=== PATIENT | female | born 1960 | race Caucasian/White ===

== ENCOUNTER 2018-09-23 07:56 | Emergency (ER) | payer BC ==
--- NOTE | 2018-09-23 08:06 | ERPHSYRPT ---
- History of Present Illness Time Seen by Provider: 09/23/18 08:01 Historian: patient, EMS Exam Limitations: no limitations Physician History: 58 y/o white female with h/o htn and states she has chronic "arthritis" pain in her chest presents with approx 30 minutes of different type of chest pain. it was sharp. it spontaneously resolved. she arrives via ems with no cp, no soa and no abd pain. pt denies n/v but does have diarrhea. she states onset yesterday but thinks she ate something she should not have since she has multiple food allergies. pt received four baby asa by EMS. pt did not take her bp meds this am. Timing/Duration: today Activities at Onset: none Quality: sharpness Location: substernal Chest Pain Radiation: no radiation Severity of Pain-Max: mild Severity of Pain-Current: none Modifying Factors: Improves With: nothing Associated Symptoms: No nausea, No vomiting, No palpitations, No heartburn, No abdominal pain, No shortness of breath, No cough, No hurts to breathe, No diaphoresis, No chills, No fever, No fatigue, No weakness, No swelling/lump in chest, No syncope, No rash, No headache, No dizziness, No edema, No back pain Prior Chest Pain/Cardiac Workup: no prior chest pain Nitro Today/Relief: no nitro taken today Aspirin Treatment Today: 81 mg x 4, provided by EMS Allergies/Adverse Reactions: Penicillins Allergy (Verified 09/23/18 08:06) Home Medications: Carvedilol 12.5 mg [Coreg 12.5 mg] 12.5 mg DAILY 09/23/18 [History] Lisinopril 10 mg [Zestril 10 MG] 10 mg DAILY 09/23/18 [History] Pravastatin Sodium [Pravachol] 10 mg DAILY 09/23/18 [History] - Review of Systems Constitutional: No Symptoms, No Fever Eyes: No Symptoms, No Discharge, No Eye Pain Ears, Nose, & Throat: No Symptoms, No Ear Pain, No Ear Discharge Respiratory: No Symptoms, No Cough, No Dyspnea, No Stridor, No Wheezing Cardiac: No Symptoms, No Chest Pain, No Edema, No Palpitations, No Syncope Abdominal/Gastrointestinal: Diarrhea, No Abdominal Pain, No Nausea, No Vomiting Genitourinary Symptoms: No Symptoms, No Dysuria, No Frequency, No Hematuria Musculoskeletal: No Symptoms Skin: No Symptoms Neurological: No Symptoms Psychological: No Symptoms Endocrine: No Symptoms Hematologic/Lymphatic: No Symptoms Immunological/Allergic: No Symptoms All Other Systems: Reviewed and Negative - Past Medical History Pertinent Past Medical History: Yes Neurological History: No Pertinent History ENT History: No Pertinent History Cardiac History: Arrhythmia, Hypertension, Other Respiratory History: No Pertinent History Endocrine Medical History: No Pertinent History Musculoskeletal History: Arthritis GI Medical History: No Pertinent History History: No Pertinent History Psycho-Social History: No Pertinent History Female Reproductive Disorders: No Pertinent History 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, irregular heart rate - Past Surgical History Past Surgical History: No Neuro Surgical History: No Pertinent History Cardiac: No Pertinent History Respiratory: No Pertinent History Gastrointestinal: No Pertinent History Genitourinary: No Pertinent History Musculoskeletal: No Pertinent History Female Surgical History: No Pertinent History Other Surgical History: hx of fx 3 vertebrae in the neck,fx lt side of jaw and skull fx from [facility] 1981 - Social History Smoking Status: Never smoker Exposure to second hand smoke: No Drug Use: none - Nursing Vital Signs Nursing Vital Signs: Initial Vital Signs O2 Sat by Pulse Oximetry 97 09/23/18 08:18 Pain Scale Pain Intensity 0 - Physical Exam General Appearance: no apparent distress, alert, anxiety Eye Exam: PERRL/EOMI, eyes nml inspection Ears, Nose, Throat Exam: normal ENT inspection, TMs normal, pharynx normal, moist mucous membranes Neck Exam: normal inspection, non-tender, supple, full range of motion Respiratory Exam: normal breath sounds, lungs clear, airway intact, No chest tenderness, No respiratory distress, No accessory muscle use, No rhonchi, No wheezing, No stridor Cardiovascular Exam: regular rate/rhythm, normal heart sounds, normal peripheral pulses Gastrointestinal/Abdomen Exam: soft, normal bowel sounds, No tenderness, No guarding, No rebound Pelvic Exam: not done Rectal Exam: not done Back Exam: normal inspection, normal range of motion, No CVA tenderness, No vertebral tenderness Extremity Exam: normal inspection, No normal range of motion, No pelvis stable Neurologic Exam: alert, oriented x 3, cooperative, mechanism inspector II-XII nml as tested Skin Exam: normal color, warm, dry Lymphatic Exam: No adenopathy SpO2 Interpretation: normal Oxygen Delivery: Room Air - Course Nursing assessment & vital signs reviewed: Yes EKG Interpreted by Me: RATE (61), Sinus Rhythm, NORMAL AXIS, NORMAL INTERVALS, NORMAL QRS, Non-specific ST Changes, Other (no comparison ekg) Ordered Tests: Active Orders 24 hr Category Date Time Status Marketing Services Specialist STAT Care 09/23/18 08:07 Active EKG-ER Only STAT Care 09/23/18 08:07 Active IV Insertion STAT Care 09/23/18 08:07 Active Pulse Oximetry (ED) STAT Care 09/23/18 08:07 Active CBC W DIFF Stat Lab 09/23/18 09:00 Completed CMP Stat Lab 09/23/18 09:00 Completed NT PRO BNP Stat Lab 09/23/18 09:00 Completed PROTIME WITH INR Stat Lab 09/23/18 09:00 Completed TROPONIN Q3H Lab 09/23/18 09:00 Completed TROPONIN Q3H Lab 09/23/18 11:15 Ordered TROPONIN Q3H Lab 09/23/18 14:15 Ordered TROPONIN Q3H Lab 09/23/18 17:15 Ordered TROPONIN Q3H Lab 09/23/18 20:15 Ordered Medication Summary Generic Name Dose Route Start Last Admin Trade Name Freq PRN Reason Stop Dose Admin Sodium Chloride 1,000 mls @ 100 mls/hr 09/23/18 08:15 09/23/18 08:30 Sodium Chloride 0.9% 1000 Ml IV 10/23/18 08:14 100 mls/hr .Q10H CHULA Administration Discontinued Medications Generic Name Dose Route Start Last Admin Trade Name Freq PRN Reason Stop Dose Admin Nitroglycerin 0.4 mg 09/23/18 08:07 09/23/18 08:30 Nitrostat 0.4 Mg (Ed) SL 09/23/18 08:08 0.4 mg STAT ONE Administration Nitroglycerin Confirm 09/23/18 08:28 Nitrostat 0.4 Mg (Ed) Administered 09/23/18 08:29 Dose 0.4 mg SL .STK-MED ONE Lab/Rad Data: Laboratory Result Diagrams 09/23/18 09:00 09/23/18 09:00 Laboratory Results 09/23/18 09/23/18 09/23/18 Range/Units 09:00 09:00 09:00 WBC (4.0-10.5) K/mm3 RBC (4.1-5.4) M/mm3 Hgb (12.0-16.0) gm/dl Hct (35-47) % MCV (78-100) fl MCH (26-32) pg MCHC (32-36) g/dl RDW (11.5-14.0) % Plt Count (150-450) K/mm3 MPV (6-9.5) fl Gran % (36.0-66.0) % Eos # (Auto) (0-0.5) Absolute Lymphs (auto) (1.0-4.6) Absolute Monos (auto) (0.0-1.3) Lymphocytes % (24.0-44.0) % Monocytes % (0.0-12.0) % Eosinophils % (0.00-5.0) % Basophils % (0.0-0.4) % Absolute Granulocytes (1.4-6.9) Basophils # (0-0.4) PT 12.7 H (9.95-12.35) SECONDS INR 1.09 (0.8-3.0) Sodium 139 (137-145) mmol/L Potassium 4.3 (3.5-5.1) mmol/L Chloride 103 (98-107) mmol/L Carbon Dioxide 27 (22-30) mmol/L Anion Gap 14.0 (5-15) MEQ/L BUN 17 (7-17) mg/dL Creatinine 0.58 (0.52-1.04) mg/dL Estimated GFR > 60.0 ML/MIN Glucose 98 (74-106) mg/dL Calcium 9.7 (8.4-10.2) mg/dL Total Bilirubin 0.60 (0.2-1.3) mg/dL AST 22 (14-36) U/L ALT 20 (0-35) U/L Alkaline Phosphatase 72 (38-126) U/L Troponin I < 0.012 (0.000-0.034) ng/mL NT-Pro-B Natriuret Pep 56.0 (0-900) pg/mL Serum Total Protein 7.4 (6.3-8.2) g/dL Albumin 4.4 (3.5-5.0) g/dL 09/23/18 Range/Units 09:00 WBC 5.7 (4.0-10.5) K/mm3 RBC 4.47 (4.1-5.4) M/mm3 Hgb 12.7 (12.0-16.0) gm/dl Hct 39.5 (35-47) % MCV 88.4 (78-100) fl MCH 28.4 (26-32) pg MCHC 32.2 (32-36) g/dl RDW 13.6 (11.5-14.0) % Plt Count 272 (150-450) K/mm3 MPV 9.9 H (6-9.5) fl Gran % 69.8 H (36.0-66.0) % Eos # (Auto) 0.11 (0-0.5) Absolute Lymphs (auto) 1.22 (1.0-4.6) Absolute Monos (auto) 0.37 (0.0-1.3) Lymphocytes % 21.4 L (24.0-44.0) % Monocytes % 6.5 (0.0-12.0) % Eosinophils % 1.9 (0.00-5.0) % Basophils % 0.4 (0.0-0.4) % Absolute Granulocytes 3.99 (1.4-6.9) Basophils # 0.02 (0-0.4) PT (9.95-12.35) SECONDS INR (0.8-3.0) Sodium (137-145) mmol/L Potassium (3.5-5.1) mmol/L Chloride (98-107) mmol/L Carbon Dioxide (22-30) mmol/L Anion Gap (5-15) MEQ/L BUN (7-17) mg/dL Creatinine (0.52-1.04) mg/dL Estimated GFR ML/MIN Glucose (74-106) mg/dL Calcium (8.4-10.2) mg/dL Total Bilirubin (0.2-1.3) mg/dL AST (14-36) U/L ALT (0-35) U/L Alkaline Phosphatase (38-126) U/L Troponin I (0.000-0.034) ng/mL NT-Pro-B Natriuret Pep (0-900) pg/mL Serum Total Protein (6.3-8.2) g/dL Albumin (3.5-5.0) g/dL - Progress Progress: improved, re-examined Air Movement: good Progress Note: 09/23/18 10:40 pt has no cp and no soa Blood Culture(s) Obtained: No Antibiotics given: No Counseled pt/family regarding: lab results, diagnosis, need for follow-up - Departure Time of Disposition: 10:40 Departure Disposition: Home Clinical Impression: Chest pain Condition: Stable Critical Care Time: No Referrals: ENMA MADRID [Primary Care Provider] - Additional Instructions: take your medications as prescribed. follow up with primary doctor for further management
[2018-09-23] MEDS ORDERED: Nitrostat 0.4 MG (ED) SL ONE ×2 (08:07→08:28)
[2018-09-23] MEDS ORDERED: Sodium Chloride 0.9% 1000 ML 1,000 ML IV SCH (08:15)
[2018-09-23] MEDS ORDERED: Sodium Chloride 0.9% 1000 ML 1,000 ML ONE (08:28)
[2018-09-23 09:21] LABS: BASOPHIL % 0.4 % (0.0-0.4); Basophil (Absolute #) 0.02 (0-0.4); Eosinophil % 1.9 % (0.00-5.0); Eosinophil (Absolute #) 0.11 (0-0.5); Granulocyte Absolute (ANC) 3.99 (1.4-6.9); Granulocytes % 69.8 % (36.0-66.0); Hematocrit 39.5 % (35-47); Hemoglobin 12.7 gm/dl (12.0-16.0); Lymphocyte (Absolute #) 1.22 (1.0-4.6); Lymphocytes % 21.4 % (24.0-44.0); Mean Cell Volume 88.4 fl (78-100); Mean Corpuscular Hemoglobin 28.4 pg (26-32); Mean Corpuscular Hgb Concent. 32.2 g/dl (32-36); Mean Platelet Volume 9.9 fl (6-9.5); Monocyte (Absolute #) 0.37 (0.0-1.3); Monocytes % 6.5 % (0.0-12.0); Platelet Count 272 K/mm3 (150-450); Red Blood Count 4.47 M/mm3 (4.1-5.4); Red Cell Distribution Width 13.6 % (11.5-14.0); White Blood Count 5.7 K/mm3 (4.0-10.5)
[2018-09-23 09:36] LABS: ALBUMIN 4.4 g/dL (3.5-5.0); ALKALINE PHOSPHATASE 72 U/L (38-126); BLOOD UREA NITROGEN 17 mg/dL (7-17); CHLORIDE 103 mmol/L (98-107); Calcium 9.7 mg/dL (8.4-10.2); Carbon Dioxide 27 mmol/L (22-30); Creatinine 1 0.58 mg/dL (0.52-1.04); Glucose 98 mg/dL (74-106); Potassium 4.3 mmol/L (3.5-5.1); SGOT/AST 22 U/L (14-36); SGPT/ALT 20 U/L (0-35); SODIUM 139 mmol/L (137-145); Total Protein 7.4 g/dL (6.3-8.2)
[2018-09-23 09:38] LABS: INR 1.09 (0.8-3.0)
[2018-09-23 11:53] VITALS: BP 152/84; PULSE 70; O2SAT 97
== END 2018-09-23 11:29 | disposition home or self-care (01) ==
LOC: ED 07:56
DX: R07.9 Chest pain, unspecified (principal); Z79.899 Other long term (current) drug therapy
CPT/HCPCS: 36000; 36415; 80053; 83880; 84484; 85025; 85610; 93005; 93041; 96360; 96361; 99284; A9270-GY

== ENCOUNTER 2019-06-11 12:30 | Emergency (ER) | payer BC ==
[2019-06-11] MEDS ORDERED: Sodium Chloride 0.9% 1000 ML 1,000 ML ONE (13:30)
--- NOTE | 2019-06-11 13:32 | ERPHSYRPT ---
- History of Present Illness Time Seen by Provider: 06/11/19 13:18 Source: patient Exam Limitations: no limitations Patient Subjective Stated Complaint: pt here for lower abd pain for a year on and off, pain started today with some nausea, was able to eat, pain is worse when stands, no fever, pt has had testing done Triage Nursing Assessment: pt walked in, alert, resp easy, skin w/d/p. abd soft , nontender, no edema, moves all ext well Physician History: At as a teaher this AM - lower Left Quadrant abdominal pain - sudden onset - still present. Has had similar episodes for the past two years. Has seen urgent care and blood work done. Sees urban planning professor for irregular heart beat. No other major medical problems and no other medical issues today. Timing/Duration: today, hour(s) (4) Severity: moderate Modifying Factors: Improves With: nothing Associated Symptoms: denies symptoms Allergies/Adverse Reactions: Penicillins Allergy (Verified 06/11/19 12:49) Home Medications: Carvedilol 12.5 mg [Coreg 12.5 mg] 12.5 mg DAILY 09/23/18 [History] Lisinopril 10 mg [Zestril 10 MG] 10 mg DAILY 09/23/18 [History] Pravastatin Sodium [Pravachol] 10 mg DAILY 09/23/18 [History] Hx Influenza Vaccination/Date Given: No Hx Pneumococcal Vaccination/Date Given: No Immunizations Up to Date: Yes - Review of Systems Constitutional: No Symptoms Respiratory: No Symptoms Cardiac: Chest Pain (Had her usual sharp tinge below breastbone I(epigastric) area also today - lasts seconds only - off and on 2 years) All Other Systems: Reviewed and Negative - Past Medical History Pertinent Past Medical History: Yes Neurological History: No Pertinent History ENT History: No Pertinent History Cardiac History: Arrhythmia, Hypertension, Other Respiratory History: No Pertinent History Endocrine Medical History: No Pertinent History Musculoskeletal History: Arthritis GI Medical History: No Pertinent History History: No Pertinent History Psycho-Social History: No Pertinent History Female Reproductive Disorders: No Pertinent History 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, irregular heart rate - Past Surgical History Past Surgical History: No Neuro Surgical History: No Pertinent History Cardiac: No Pertinent History Respiratory: No Pertinent History Gastrointestinal: No Pertinent History Genitourinary: No Pertinent History Musculoskeletal: No Pertinent History Female Surgical History: No Pertinent History Other Surgical History: hx of fx 3 vertebrae in the neck,fx lt side of jaw and skull fx from [facility] 1981 - Social History Smoking Status: Never smoker Exposure to second hand smoke: No Drug Use: none Patient Lives Alone: No - Female History Hx Last Menstrual Period: no Hx Now: No - Nursing Vital Signs Nursing Vital Signs: Initial Vital Signs Pulse Rate 83 06/11/19 12:39 Respiratory Rate 18 06/11/19 12:39 Blood Pressure 175/94 06/11/19 12:39 O2 Sat by Pulse Oximetry 98 06/11/19 12:39 Pain Scale Pain Intensity 0 - Physical Exam General Appearance: no apparent distress Eye Exam: PERRL/EOMI Ears, Nose, Throat Exam: normal ENT inspection Neck Exam: normal inspection Respiratory Exam: normal breath sounds, lungs clear, airway intact, No chest tenderness Cardiovascular Exam: regular rate/rhythm, normal heart sounds, normal peripheral pulses, No edema Gastrointestinal/Abdomen Exam: soft, normal bowel sounds, other (soft to palation), No tenderness, No distention, No guarding Extremity Exam: normal inspection, normal range of motion, No pedal edema, No swelling Neurologic Exam: alert, oriented x 3, cooperative, floor finisher II-XII nml as tested, normal mood/affect SpO2 Interpretation: normal SpO2: 98 O2 Delivery: Room Air - Course Nursing assessment & vital signs reviewed: Yes - CT Exams Abdomen/Pelvis CT Interpretation: Other (Small L inguinal hernia) Ordered Tests: Active Orders 24 hr Category Date Time Status IV Insertion STAT Care 06/11/19 12:55 Active ABDOMEN AND PELVIS W CONTRAST [CT] Stat Exams 06/11/19 13:41 Completed CBC W DIFF Stat Lab 06/11/19 12:45 Completed CMP Stat Lab 06/11/19 12:45 Completed LIPASE Stat Lab 06/11/19 12:45 Completed UA W/RFX UR CULTURE Stat Lab 06/11/19 13:34 Completed Medication Summary Discontinued Medications Generic Name Dose Route Start Last Admin Trade Name Freq PRN Reason Stop Dose Admin Sodium Chloride 1,000 mls @ 999 mls/hr 06/11/19 13:26 06/11/19 14:34 Sodium Chloride 0.9% 1000 Ml IV 06/11/19 14:26 Infused .Q1H1M STA Infusion Sodium Chloride Confirm 06/11/19 13:30 Sodium Chloride 0.9% 1000 Ml Administered 06/11/19 13:31 Dose 1,000 mls @ .ROUTE [facility] Lab/Rad Data: Laboratory Result Diagrams 06/11/19 12:45 06/11/19 12:45 Laboratory Results 06/11/19 06/11/19 06/11/19 Range/Units 13:34 12:45 12:45 WBC 6.1 (4.0-10.5) K/mm3 RBC 4.51 (4.1-5.4) M/mm3 Hgb 13.2 (12.0-16.0) gm/dl Hct 40.6 (35-47) % MCV 90.0 (78-100) fl MCH 29.3 (26-32) pg MCHC 32.5 (32-36) g/dl RDW 13.7 (11.5-14.0) % Plt Count 317 (150-450) K/mm3 MPV 9.9 H (6-9.5) fl Gran % 63.8 (36.0-66.0) % Eos # (Auto) 0.16 (0-0.5) Absolute Lymphs (auto) 1.57 (1.0-4.6) Absolute Monos (auto) 0.44 (0.0-1.3) Lymphocytes % 26.0 (24.0-44.0) % Monocytes % 7.3 (0.0-12.0) % Eosinophils % 2.6 (0.00-5.0) % Basophils % 0.3 (0.0-0.4) % Absolute Granulocytes 3.86 (1.4-6.9) Basophils # 0.02 (0-0.4) Sodium 139 (137-145) mmol/L Potassium 4.0 (3.5-5.1) mmol/L Chloride 102 (98-107) mmol/L Carbon Dioxide 27 (22-30) mmol/L Anion Gap 13.5 (5-15) MEQ/L BUN 18 H (7-17) mg/dL Creatinine 0.72 (0.52-1.04) mg/dL Estimated GFR > 60.0 ML/MIN Glucose 114 H (74-106) mg/dL Calcium 10.0 (8.4-10.2) mg/dL Total Bilirubin 0.60 (0.2-1.3) mg/dL AST 33 (14-36) U/L ALT 25 (0-35) U/L Alkaline Phosphatase 72 (38-126) U/L Serum Total Protein 8.0 (6.3-8.2) g/dL Albumin 4.6 (3.5-5.0) g/dL Lipase 111 (23-300) U/L Urine Color YELLOW (YELLOW) Urine Appearance CLEAR (CLEAR) Urine pH 6.0 (5-6) Ur Specific [place] 1.012 (1.005-1.025) Urine Protein NEGATIVE (Negative) Urine Ketones NEGATIVE (NEGATIVE) Urine Blood NEGATIVE (0-5) Ovidio/ul Urine Nitrite NEGATIVE (NEGATIVE) Urine Bilirubin NEGATIVE (NEGATIVE) Urine Urobilinogen NEGATIVE (0-1) mg/dL Ur Leukocyte Esterase NEGATIVE (NEGATIVE) Urine WBC (Auto) 0-2 (0-5) /HPF Urine RBC (Auto) NONE (0-2) /HPF U Epithel Cells (Auto) RARE (FEW) /HPF Urine Bacteria (Auto) NONE (NEGATIVE) /HPF Urine Culture Reflexed NO (NO) Urine Glucose NEGATIVE (NEGATIVE) mg/dL - Progress Progress: unchanged Progress Note: 06/11/19 15:[address] scan shows a small Left Inguinal Hernia - patient localizes discomfort to the Left Inguinal area with her hands. Abd is soft and non tender to palpation. Patient is in no distress. - Departure Departure Disposition: Home Clinical Impression: Abdominal pain, Inguinal hernia of left side without obstruction or gangrene Condition: Good Critical Care Time: No Referrals: ENMA MADRID [Primary Care Provider] - Instructions: Inguinal and Femoral (Groin) Hernias Additional Instructions: Follow up with a surgeon; call for appointment. Take the CD which shows the CT Scan done here on June 11. Use pain medication as needed. Prescriptions: Tramadol HCl 50 mg [Ultram 50 mg] 50 mg PO Q6H PRN PRN #10 tablet PRN Reason: Pain
[2019-06-11] MEDS: Sodium Chloride 0.9% 1000 ML 1,000 ML IV STA (13:33)
[2019-06-11 13:35] LABS: BASOPHIL % 0.3 % (0.0-0.4); Basophil (Absolute #) 0.02 (0-0.4); Eosinophil % 2.6 % (0.00-5.0); Eosinophil (Absolute #) 0.16 (0-0.5); Granulocyte Absolute (ANC) 3.86 (1.4-6.9); Granulocytes % 63.8 % (36.0-66.0); Hematocrit 40.6 % (35-47); Hemoglobin 13.2 gm/dl (12.0-16.0); Lymphocyte (Absolute #) 1.57 (1.0-4.6); Mean Corpuscular Hemoglobin 29.3 pg (26-32); Mean Corpuscular Hgb Concent. 32.5 g/dl (32-36); Mean Platelet Volume 9.9 fl (6-9.5); Monocyte (Absolute #) 0.44 (0.0-1.3); Monocytes % 7.3 % (0.0-12.0); Platelet Count 317 K/mm3 (150-450); Red Blood Count 4.51 M/mm3 (4.1-5.4); Red Cell Distribution Width 13.7 % (11.5-14.0); White Blood Count 6.1 K/mm3 (4.0-10.5)
[2019-06-11 13:36] LABS: ALBUMIN 4.6 g/dL (3.5-5.0); ALKALINE PHOSPHATASE 72 U/L (38-126); ANION GAP 13.5 MEQ/L (5-15); BLOOD UREA NITROGEN 18 mg/dL (7-17); CHLORIDE 102 mmol/L (98-107); Carbon Dioxide 27 mmol/L (22-30); Creatinine 1 0.72 mg/dL (0.52-1.04); Glucose 114 mg/dL (74-106); LIPASE 111 U/L (23-300); SGOT/AST 33 U/L (14-36); SGPT/ALT 25 U/L (0-35); SODIUM 139 mmol/L (137-145)
[2019-06-11 13:50] LABS: Appearance CLEAR (CLEAR); Bilirubin NEGATIVE (NEGATIVE); Blood NEGATIVE Ery/ul (0-5); Epithelial Cells RARE /HPF (FEW); Glucose NEGATIVE (NEGATIVE); Ketones NEGATIVE (NEGATIVE); Leukocyte Esterase NEGATIVE (NEGATIVE); Nitrite NEGATIVE (NEGATIVE); Protein,Urine Dip NEGATIVE (Negative); Specific Gravity 1.012 (1.005-1.025); Urobilinogen NEGATIVE mg/dL (0-1); WBC 0-2 /HPF (0-5)
[2019-06-11 14:35] VITALS: PULSE 76
--- NOTE | 2019-06-11 14:42 | XRAY ---
Indication: Left lower quadrant pain. Multiple contiguous axial images obtained through the abdomen and pelvis using 80 cc Isovue 370 contrast only. Comparison: None Lung bases demonstrates minimal fibrosis/scarring. No infiltrate or effusion. Heart is not enlarged. Stomach is distended with food/fluid. Noncontrasted stomach and bowel loops appear nonobstructed. Normal appendix. Mild diffuse scattered colonic fecal debris throughout. No free fluid/air. At least 2 hepatic cysts, largest in the left lobe measuring 1.5 cm. Remaining liver, gallbladder, pancreas, spleen, adrenal glands, kidneys, ureters, bladder, uterus, and aorta appear unremarkable. No pathologic retroperitoneal lymphadenopathy. Osseous structures intact with mild degenerative changes throughout the thoracolumbar spine. Tiny fatty left inguinal hernia. Impression: 1. Mild fecal stasis without obstruction, 2 hepatic cysts, and tiny fatty left inguinal hernia. 2. Remaining CT abdomen/pelvis with contrast exam is negative. CT DI 23.54
[2019-06-11 14:55] VITALS: BP 146/85; O2SAT 98
== END 2019-06-11 15:04 | disposition home or self-care (01) ==
LOC: ED 12:30
DX: R10.9 Unspecified abdominal pain (principal); K40.90 Unilateral inguinal hernia, without obstruction or gangrene, not specified as recurrent
CPT/HCPCS: 36000; 36415; 74177; 80053; 81001; 83690; 85025; 96360; 99284

== ENCOUNTER 2020-03-01 14:51 | Observation (INO) | payer BC ==
--- NOTE | 2020-03-01 15:40 | ERPHSYRPT ---
- History of Present Illness Time Seen by Provider: 03/01/20 15:10 Historian: patient Exam Limitations: no limitations Patient Subjective Stated Complaint: Pt stated that she began having pain in her right chest at approx 2000 yesterday and today when she woke up it was in her back, states that it hurts on every breath that she takes and rates it an 8/ 10 Triage Nursing Assessment: Pt came to the ER with c/o of right chest pain that has radiated to her back, hypertensive, denies pain with palpatation to the gall bladder area, lungs clear, heart sounds normal, rates pain 8/10 when she breaths, no edema, doesn't appear to be in any distress Physician History: Patient is a 59-year-old female presents to our ED with complaints of right- sided chest pain. Chest pain started yesterday evening. Patient awoke this morning with pain radiating to her right back. Pain is intermittent. No active pain at this time. Patient has a history of coronary artery disease. She had a cath done in 2009 that revealed 50% occlusion of a main artery. However she was not a candidate at that time for further intervention. Patient had a cardiac stress test in 2013 that was apparently normal. Patient has not had a cardiac work-up since. Pain described as an ache. Pain radiates to her right shoulder. No associated nausea or vomiting. No diaphoresis. No trauma. No fevers. Symptoms are moderate in intensity. No specific worsening factors. Patient voices no other complaints at this time. Timing/Duration: yesterday Activities at Onset: none Quality: aching Location: other (Right chest.) Chest Pain Radiation: back Severity of Pain-Max: moderate Severity of Pain-Current: none Modifying Factors: Improves With: nothing Associated Symptoms: denies symptoms Aspirin Treatment Today: 325 mg x 1 Allergies/Adverse Reactions: Penicillins Allergy (Verified 03/01/20 15:19) states "severe mold allergy" Home Medications: Carvedilol 12.5 mg [Coreg 12.5 mg] 6.25 mg PO DAILY 09/23/18 [History] Lisinopril 10 mg [Zestril 10 MG] 20 mg PO DAILY 09/23/18 [History] Pravastatin Sodium [Pravachol] 40 mg PO DAILY 09/23/18 [History] Meloxicam 7.5 mg [Mobic 7.5 MG] 7.5 mg PO DAILY 03/01/20 [History] Hx Influenza Vaccination/Date Given: No Hx Pneumococcal Vaccination/Date Given: No Travel Risk - International Travel Have you traveled outside of the country in past 3 weeks: No Have you or anyone close to you been diagnosed with or: No Do your reside in a community with a known COVID-19 case?: Yes If Yes where:: [place] - Coronavirus Screening Has patient experienced Coronavirus symptoms: No - Review of Systems Constitutional: No Symptoms, No Fever, No Chills Eyes: No Symptoms Ears, Nose, & Throat: No Symptoms Respiratory: No Symptoms, No Cough, No Dyspnea Cardiac: No Symptoms, No Chest Pain, No Edema, No Syncope Abdominal/Gastrointestinal: No Symptoms, No Abdominal Pain, No Nausea, No Vomiting, No Diarrhea Genitourinary Symptoms: No Symptoms, No Dysuria Musculoskeletal: No Symptoms, No Back Pain, No Neck Pain Skin: No Symptoms, No Rash Neurological: No Symptoms, No Dizziness, No Focal Weakness, No Sensory Changes Psychological: No Symptoms Endocrine: No Symptoms Hematologic/Lymphatic: No Symptoms Immunological/Allergic: No Symptoms All Other Systems: Reviewed and Negative - Past Medical History Pertinent Past Medical History: Yes Neurological History: No Pertinent History ENT History: No Pertinent History Cardiac History: Arrhythmia, Hypertension, Other Respiratory History: No Pertinent History Endocrine Medical History: No Pertinent History Musculoskeletal History: Arthritis GI Medical History: No Pertinent History History: No Pertinent History Psycho-Social History: No Pertinent History Female Reproductive Disorders: No Pertinent History 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, irregular heart rate - Past Surgical History Past Surgical History: Yes Neuro Surgical History: No Pertinent History Cardiac: No Pertinent History Respiratory: No Pertinent History Gastrointestinal: No Pertinent History Genitourinary: No Pertinent History Musculoskeletal: No Pertinent History Female Surgical History: No Pertinent History Other Surgical History: hx of fx 3 vertebrae in the neck,fx lt side of jaw and skull fx from [facility] 1981 - Social History Smoking Status: Never smoker Exposure to second hand smoke: No Drug Use: none Patient Lives Alone: No - Nursing Vital Signs Nursing Vital Signs: Initial Vital Signs Temperature 98.1 F 03/01/20 15:03 Pulse Rate 73 03/01/20 15:03 Respiratory Rate 13 03/01/20 15:03 Blood Pressure 179/91 03/01/20 15:03 O2 Sat by Pulse Oximetry 100 03/01/20 15:03 Pain Scale Pain Intensity 6 - Physical Exam SpO2: 99 - Course EKG Interpreted by Me: RATE, Sinus Rhythm, NORMAL AXIS, NORMAL INTERVALS - Radiology Exams Chest X-ray Interpretation: Teleradiologist Report (Lung granuloma, some early spine degenerative disease otherwise within normal limits. No acute process observed. ) Ordered Tests: Active Orders 24 hr Category Date Time Status Flat Bed Knitter STAT Care 03/01/20 15:02 Active EKG-ER Only STAT Care 03/01/20 15:02 Active IV Insertion STAT Care 03/01/20 15:02 Active Pulse Oximetry (ED) STAT Care 03/01/20 15:02 Active CHEST 1 VIEW (PORTABLE) Stat Exams 03/01/20 15:02 Completed CBC W DIFF Stat Lab 03/01/20 15:02 Completed CMP Stat Lab 03/01/20 15:15 Completed D-DIMER QUANTITATIVE Stat Lab 03/01/20 15:15 Completed NT PRO BNP Stat Lab 03/01/20 15:15 Completed TROPONIN Q3H Lab 03/01/20 15:15 Completed TROPONIN Q3H Lab 03/01/20 17:41 Received TROPONIN Q3H Lab 03/01/20 21:15 Ordered TROPONIN Q3H Lab 03/02/20 00:15 Ordered TROPONIN Q3H Lab 03/02/20 03:15 Ordered Transfer Order Routine Transfer 03/01/20 Ordered Lab/Rad Data: Laboratory Result Diagrams 03/01/20 15:02 03/01/20 15:15 Laboratory Results 03/01/20 03/01/20 03/01/20 Range/Units 15:15 15:15 15:15 WBC (4.0-10.5) K/mm3 RBC (4.1-5.4) M/mm3 Hgb (12.0-16.0) gm/dl Hct (35-47) % MCV (78-100) fl MCH (26-32) pg MCHC (32-36) g/dl RDW (11.5-14.0) % Plt Count (150-450) K/mm3 MPV (7.5-11.0) fl Gran % (36.0-66.0) % Eos # (Auto) (0-0.5) Absolute Lymphs (auto) (1.0-4.6) Absolute Monos (auto) (0.0-1.3) Lymphocytes % (24.0-44.0) % Monocytes % (0.0-12.0) % Eosinophils % (0.00-5.0) % Basophils % (0.0-0.4) % Absolute Granulocytes (1.4-6.9) Basophils # (0-0.4) D-Dimer 369 (215-500) ng/mL Sodium 140 (137-145) mmol/L Potassium 4.3 (3.5-5.1) mmol/L Chloride 104 (98-107) mmol/L Carbon Dioxide 26 (22-30) mmol/L Anion Gap 14.5 (5-15) MEQ/L BUN 14 (7-17) mg/dL Creatinine 0.59 (0.52-1.04) mg/dL Estimated GFR > 60.0 ML/MIN Glucose 92 (74-106) mg/dL Calcium 10.0 (8.4-10.2) mg/dL Total Bilirubin 0.60 (0.2-1.3) mg/dL AST 30 (14-36) U/L ALT 26 (0-35) U/L Alkaline Phosphatase 77 (38-126) U/L Troponin I < 0.012 (0.000-0.034) ng/mL NT-Pro-B Natriuret Pep 81.5 (0-900) pg/mL Serum Total Protein 8.4 H (6.3-8.2) g/dL Albumin 4.8 (3.5-5.0) g/dL 03/01/20 Range/Units 15:02 WBC 6.1 (4.0-10.5) K/mm3 RBC 4.69 (4.1-5.4) M/mm3 Hgb 13.6 (12.0-16.0) gm/dl Hct 41.6 (35-47) % MCV 88.7 (78-100) fl MCH 29.0 (26-32) pg MCHC 32.7 (32-36) g/dl RDW 13.6 (11.5-14.0) % Plt Count 296 (150-450) K/mm3 MPV 10.2 (7.5-11.0) fl Gran % 64.8 (36.0-66.0) % Eos # (Auto) 0.15 (0-0.5) Absolute Lymphs (auto) 1.48 (1.0-4.6) Absolute Monos (auto) 0.50 (0.0-1.3) Lymphocytes % 24.2 (24.0-44.0) % Monocytes % 8.2 (0.0-12.0) % Eosinophils % 2.5 (0.00-5.0) % Basophils % 0.3 (0.0-0.4) % Absolute Granulocytes 3.97 (1.4-6.9) Basophils # 0.02 (0-0.4) D-Dimer (215-500) ng/mL Sodium (137-145) mmol/L Potassium (3.5-5.1) mmol/L Chloride (98-107) mmol/L Carbon Dioxide (22-30) mmol/L Anion Gap (5-15) MEQ/L BUN (7-17) mg/dL Creatinine (0.52-1.04) mg/dL Estimated GFR ML/MIN Glucose (74-106) mg/dL Calcium (8.4-10.2) mg/dL Total Bilirubin (0.2-1.3) mg/dL AST (14-36) U/L ALT (0-35) U/L Alkaline Phosphatase (38-126) U/L Troponin I (0.000-0.034) ng/mL NT-Pro-B Natriuret Pep (0-900) pg/mL Serum Total Protein (6.3-8.2) g/dL Albumin (3.5-5.0) g/dL - Progress Progress: improved Air Movement: good Progress Note: 03/01/20 18:02 Patient reassessed. No active chest pain. Patient took aspirin prior to arrival. In light of patient's past medical history current complaints and risk factors we will admit patient for cardiac rule out. Case discussed with Dr. Lopez who accepts admission to observation. Plan of care discussed with patient. She agrees to admission to [facility] for further evaluation and treatment. Blood Culture(s) Obtained: No Antibiotics given: No Discussed with : Jair Will see patient in: hospital (observation) Counseled pt/family regarding: lab results, diagnosis, rad results - Departure Departure Disposition: Observation Clinical Impression: ACS (acute coronary syndrome), Chest pain, Lung granuloma Condition: Stable Critical Care Time: No Referrals: ENMA MADRID [Primary Care Provider] -
[2020-03-01 15:56] LABS: Absolute Neutrophil Ct (ANC) 3.97 (1.4-6.9); BASOPHIL % 0.3 % (0.0-0.4); Basophil (Absolute #) 0.02 (0-0.4); Eosinophil % 2.5 % (0.00-5.0); Eosinophil (Absolute #) 0.15 (0-0.5); Hematocrit 41.6 % (35-47); Hemoglobin 13.6 gm/dl (12.0-16.0); Lymphocyte (Absolute #) 1.48 (1.0-4.6); Lymphocytes % 24.2 % (24.0-44.0); Mean Cell Volume 88.7 fl (78-100); Mean Corpuscular Hgb Concent. 32.7 g/dl (32-36); Mean Platelet Volume 10.2 fl (7.5-11.0); Monocytes % 8.2 % (0.0-12.0); Neutrophil % 64.8 % (36.0-66.0); Platelet Count 296 K/mm3 (150-450); Red Blood Count 4.69 M/mm3 (4.1-5.4); Red Cell Distribution Width 13.6 % (11.5-14.0); White Blood Count 6.1 K/mm3 (4.0-10.5)
[2020-03-01 16:15] LABS: ALBUMIN 4.8 g/dL (3.5-5.0); ALKALINE PHOSPHATASE 77 U/L (38-126); ANION GAP 14.5 MEQ/L (5-15); BLOOD UREA NITROGEN 14 mg/dL (7-17); CHLORIDE 104 mmol/L (98-107); Carbon Dioxide 26 mmol/L (22-30); Creatinine 1 0.59 mg/dL (0.52-1.04); Glucose 92 mg/dL (74-106); NT PRO BNP 81.5 pg/mL (0-900); Potassium 4.3 mmol/L (3.5-5.1); SGOT/AST 30 U/L (14-36); SGPT/ALT 26 U/L (0-35); SODIUM 140 mmol/L (137-145); Total Protein 8.4 g/dL (6.3-8.2)
--- NOTE | 2020-03-01 16:20 | XRAY ---
Indication: Chest and back pain. Comparison: None Portable chest clear with incidental tiny right apical calcified granulomas. Heart is not enlarged for AP portable technique. Bony thorax intact with minimal spinal degenerative changes. Impression: Nonacute chest with chronic features.
[2020-03-01] MEDS ORDERED: MAALOX ES 30 ML UNIT DOSE PO PRN (18:45)
[2020-03-01] MEDS ORDERED: Zofran 4 MG/2 ML VIAL IV PRN (18:45)
[2020-03-01] MEDS ORDERED: Senokot-S Tablet PO PRN (18:45)
[2020-03-01] MEDS ORDERED: MILK OF MAGNESIA 30 ML PO PRN (18:45)
[2020-03-01] MEDS: TYLENOL 325 MG PO PRN (21:14)
[2020-03-01] MEDS: Coreg 6.25 MG PO SCH (21:14)
[2020-03-01] MEDS ORDERED: Mobic 7.5 MG PO SCH (22:00)
[2020-03-01] MEDS ORDERED: ZOCOR 20MG PO SCH (22:00)
[2020-03-01] MEDS ORDERED: Zestril 20 MG PO SCH (22:00)
[2020-03-02 00:44] LABS: Risk Ratio 3.1
[2020-03-02] MEDS: TYLENOL 325 MG PO PRN (02:30)
[2020-03-02 07:30] VITALS: O2SAT 97
[2020-03-02] MEDS: Coreg 6.25 MG PO SCH (10:14)
--- NOTE | 2020-03-02 11:24 | PCM.SSS ---
History of Present Illness - Chief Complaint Chief Complaint: ACS History of Present Illness: is a 59 year old female that was admitted from ER for chest pain. R sided pain started Tues night. Patient reports arthritis in chest and has had pain similar to this but this was worse and worse with breathing. Burning constant pain but with breathing it would get worse. - Review of Systems Constitutional: No Fever, No Chills, No Night Sweats, No Weight Loss Eyes: Other (Symptoms of detached retina L sided) Ears, Nose, & Throat: Sinus Drainage, Snoring, Other (Left ear pain), No Throat Pain, No Painful Swallowing Respiratory: No Cough, No Orthopnea, No Short Of Breath, No Wheezing Cardiac: Chest Pain, Palpitations, No Edema, No Syncope Abdominal/Gastrointestinal: No Abdominal Pain, No Nausea, No Vomiting, No Diarrhea Genitourinary Symptoms: No Dysuria Musculoskeletal: Neck Pain, Other (Multiple areas of arthritis) Skin: No Rash Neurological: Dizziness, Headache (Mainly when blood pressure is higher) Psychological: Anxiety, No Alcohol Abuse, No Drug Abuse, No Suicidal Ideations, No Homicidal Ideations Endocrine: No Symptoms Hematologic/Lymphatic: No Symptoms Medications & Allergies Home Medications: Home Medication List Carvedilol 12.5 mg [Coreg 12.5 mg] 6.25 mg PO BID 09/23/18 [History Confirmed 03/01/20] Lisinopril 10 mg [Zestril 10 MG] 20 mg PO QHS 09/23/18 [History Confirmed 03/01/20] Pravastatin Sodium [Pravachol] 40 mg PO QHS 09/23/18 [History Confirmed 03/01/20 ] Meloxicam 7.5 mg [Mobic 7.5 MG] 7.5 mg PO QHS 03/01/20 [History Confirmed 03/01/20] Allergies/Adverse Reactions: Allergies Allergy/AdvReac Type Severity Reaction Status Date / Time Penicillins Allergy Verified 03/01/20 15:19 - Past Medical History Past Medical History: Yes Neurological History: No Pertinent History ENT History: No Pertinent History Cardiac History: Arrhythmia, Hypertension, Other Respiratory History: No Pertinent History Endocrine Medical History: No Pertinent History Musculoskelatal History: Arthritis GI Medical History: No Pertinent History History: No Pertinent History Pyscho-Social History: No Pertinent History Reproductive Disorders: No Pertinent History Comment: 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 hx of fx 3 vertebrae in the neck,fx lt side of jaw and skull fx from [facility] 1981 - Past Surgical History Past Surgical History: No Neuro Surgical History: No Pertinent History Cardiac History: No Pertinent History Respiratory Surgery: No Pertinent History GI Surgical History: No Pertinent History Genitourinary Surgical Hx: No Pertinent History Musculskeletal Surgical Hx: No Pertinent History Female Surgical History: No Pertinent History Other Surgical History: hx of fx 3 vertebrae in the neck,fx lt side of jaw and skull fx from [facility] 1981 - Social History Smoking Status: Never smoker Exposure to second hand smoke: No Alcohol: None Drug Use: none - Physical Exam Vital Signs: Vital Signs - 24 hr Temp Pulse Pulse Resp BP Pulse Ox 03/02/20 07:28 98.4 F 65 12 131/63 97 03/02/20 05:00 97.8 F 63 16 122/63 99 03/02/20 01:00 97.9 F 67 18 131/60 97 03/01/20 20:35 98.5 F 72 18 145/72 97 03/01/20 20:00 96 03/01/20 19:45 98.3 F 64 16 161/73 96 03/01/20 18:40 98.3 F 64 18 161/73 96 03/01/20 18:06 99 03/01/20 18:05 62 16 156/100 99 03/01/20 16:30 62 18 158/95 99 03/01/20 16:00 66 18 150/95 98 03/01/20 15:21 99 03/01/20 15:03 98.1 F 64 73 13 179/91 100 General Appearance: no apparent distress Neurologic Exam: alert, oriented x 3, cooperative (xdds) Results - Labs Lab/Micro Results: Lab Results-Last 24 Hours 03/01/20 03/01/20 03/01/20 Range/Units 15:02 15:15 15:15 WBC 6.1 (4.0-10.5) K/mm3 RBC 4.69 (4.1-5.4) M/mm3 Hgb 13.6 (12.0-16.0) gm/dl Hct 41.6 (35-47) % MCV 88.7 (78-100) fl MCH 29.0 (26-32) pg MCHC 32.7 (32-36) g/dl RDW 13.6 (11.5-14.0) % Plt Count 296 (150-450) K/mm3 MPV 10.2 (7.5-11.0) fl Gran % 64.8 (36.0-66.0) % Eos # (Auto) 0.15 (0-0.5) Absolute Lymphs (auto) 1.48 (1.0-4.6) Absolute Monos (auto) 0.50 (0.0-1.3) Lymphocytes % 24.2 (24.0-44.0) % Monocytes % 8.2 (0.0-12.0) % Eosinophils % 2.5 (0.00-5.0) % Basophils % 0.3 (0.0-0.4) % Absolute Granulocytes 3.97 (1.4-6.9) Basophils # 0.02 (0-0.4) D-Dimer (215-500) ng/mL Sodium 140 (137-145) mmol/L Potassium 4.3 (3.5-5.1) mmol/L Chloride 104 (98-107) mmol/L Carbon Dioxide 26 (22-30) mmol/L Anion Gap 14.5 (5-15) MEQ/L BUN 14 (7-17) mg/dL Creatinine 0.59 (0.52-1.04) mg/dL Estimated GFR > 60.0 ML/MIN Glucose 92 (74-106) mg/dL Calcium 10.0 (8.4-10.2) mg/dL Total Bilirubin 0.60 (0.2-1.3) mg/dL AST 30 (14-36) U/L ALT 26 (0-35) U/L Alkaline Phosphatase 77 (38-126) U/L Troponin I < 0.012 (0.000-0.034) ng/mL NT-Pro-B Natriuret Pep 81.5 (0-900) pg/mL Serum Total Protein 8.4 H (6.3-8.2) g/dL Albumin 4.8 (3.5-5.0) g/dL Triglycerides (30-150) mg/dL Cholesterol (50-200) mg/dL LDL Cholesterol (30-100) mg/dL HDL Cholesterol (40-60) mg/dL Heart Disease Risk Ratio 03/01/20 03/01/20 03/01/20 Range/Units 15:15 17:41 21:10 WBC (4.0-10.5) K/mm3 RBC (4.1-5.4) M/mm3 Hgb (12.0-16.0) gm/dl Hct (35-47) % MCV (78-100) fl MCH (26-32) pg MCHC (32-36) g/dl RDW (11.5-14.0) % Plt Count (150-450) K/mm3 MPV (7.5-11.0) fl Gran % (36.0-66.0) % Eos # (Auto) (0-0.5) Absolute Lymphs (auto) (1.0-4.6) Absolute Monos (auto) (0.0-1.3) Lymphocytes % (24.0-44.0) % Monocytes % (0.0-12.0) % Eosinophils % (0.00-5.0) % Basophils % (0.0-0.4) % Absolute Granulocytes (1.4-6.9) Basophils # (0-0.4) D-Dimer 369 (215-500) ng/mL Sodium (137-145) mmol/L Potassium (3.5-5.1) mmol/L Chloride (98-107) mmol/L Carbon Dioxide (22-30) mmol/L Anion Gap (5-15) MEQ/L BUN (7-17) mg/dL Creatinine (0.52-1.04) mg/dL Estimated GFR ML/MIN Glucose (74-106) mg/dL Calcium (8.4-10.2) mg/dL Total Bilirubin (0.2-1.3) mg/dL AST (14-36) U/L ALT (0-35) U/L Alkaline Phosphatase (38-126) U/L Troponin I < 0.012 < 0.012 (0.000-0.034) ng/mL NT-Pro-B Natriuret Pep (0-900) pg/mL Serum Total Protein (6.3-8.2) g/dL Albumin (3.5-5.0) g/dL Triglycerides (30-150) mg/dL Cholesterol (50-200) mg/dL LDL Cholesterol (30-100) mg/dL HDL Cholesterol (40-60) mg/dL Heart Disease Risk Ratio 03/02/20 03/02/20 03/02/20 Range/Units 00:00 00:20 03:20 WBC (4.0-10.5) K/mm3 RBC (4.1-5.4) M/mm3 Hgb (12.0-16.0) gm/dl Hct (35-47) % MCV (78-100) fl MCH (26-32) pg MCHC (32-36) g/dl RDW (11.5-14.0) % Plt Count (150-450) K/mm3 MPV (7.5-11.0) fl Gran % (36.0-66.0) % Eos # (Auto) (0-0.5) Absolute Lymphs (auto) (1.0-4.6) Absolute Monos (auto) (0.0-1.3) Lymphocytes % (24.0-44.0) % Monocytes % (0.0-12.0) % Eosinophils % (0.00-5.0) % Basophils % (0.0-0.4) % Absolute Granulocytes (1.4-6.9) Basophils # (0-0.4) D-Dimer (215-500) ng/mL Sodium (137-145) mmol/L Potassium (3.5-5.1) mmol/L Chloride (98-107) mmol/L Carbon Dioxide (22-30) mmol/L Anion Gap (5-15) MEQ/L BUN (7-17) mg/dL Creatinine (0.52-1.04) mg/dL Estimated GFR ML/MIN Glucose (74-106) mg/dL Calcium (8.4-10.2) mg/dL Total Bilirubin (0.2-1.3) mg/dL AST (14-36) U/L ALT (0-35) U/L Alkaline Phosphatase (38-126) U/L Troponin I < 0.012 < 0.012 (0.000-0.034) ng/mL NT-Pro-B Natriuret Pep (0-900) pg/mL Serum Total Protein (6.3-8.2) g/dL Albumin (3.5-5.0) g/dL Triglycerides 229 H (30-150) mg/dL Cholesterol 165 (50-200) mg/dL LDL Cholesterol 82 (30-100) mg/dL HDL Cholesterol 53 (40-60) mg/dL Heart Disease Risk Ratio 3.1 - Radiology Impressions Radiology Exams & Impressions: Radiology Procedures Category Date Time Status CHEST 1 VIEW (PORTABLE) Stat Exams 03/01/20 15:02 Completed - Other Procedures and Tests Respiratory Therapy 03/03/20 05:00 EKG ROUTINE 03/04/20 05:00 EKG ROUTINE Hospital Summary - Vitals & Intake/Output Vital Signs: Vital Signs Temperature 98.4 F 03/02/20 07:28 Pulse Rate 65 03/02/20 07:28 Respiratory Rate 12 03/02/20 07:28 Blood Pressure 131/63 03/02/20 07:28 O2 Sat by Pulse Oximetry 97 03/02/20 07:28 Intake & Output: Intake & Output 02/28/20 02/29/20 03/01/20 03/02/20 11:59 11:59 11:59 11:59 Intake Total 650 Output Total 900 Balance -250 Weight 85.7 kg - Lab Result Diagrams: 03/01/20 15:02 03/01/20 15:15 Lab Results-Last 24 Hrs: Lab Results-Last 24 Hours 03/01/20 03/01/20 03/01/20 Range/Units 15:02 15:15 15:15 WBC 6.1 (4.0-10.5) K/mm3 RBC 4.69 (4.1-5.4) M/mm3 Hgb 13.6 (12.0-16.0) gm/dl Hct 41.6 (35-47) % MCV 88.7 (78-100) fl MCH 29.0 (26-32) pg MCHC 32.7 (32-36) g/dl RDW 13.6 (11.5-14.0) % Plt Count 296 (150-450) K/mm3 MPV 10.2 (7.5-11.0) fl Gran % 64.8 (36.0-66.0) % Eos # (Auto) 0.15 (0-0.5) Absolute Lymphs (auto) 1.48 (1.0-4.6) Absolute Monos (auto) 0.50 (0.0-1.3) Lymphocytes % 24.2 (24.0-44.0) % Monocytes % 8.2 (0.0-12.0) % Eosinophils % 2.5 (0.00-5.0) % Basophils % 0.3 (0.0-0.4) % Absolute Granulocytes 3.97 (1.4-6.9) Basophils # 0.02 (0-0.4) D-Dimer (215-500) ng/mL Sodium 140 (137-145) mmol/L Potassium 4.3 (3.5-5.1) mmol/L Chloride 104 (98-107) mmol/L Carbon Dioxide 26 (22-30) mmol/L Anion Gap 14.5 (5-15) MEQ/L BUN 14 (7-17) mg/dL Creatinine 0.59 (0.52-1.04) mg/dL Estimated GFR > 60.0 ML/MIN Glucose 92 (74-106) mg/dL Calcium 10.0 (8.4-10.2) mg/dL Total Bilirubin 0.60 (0.2-1.3) mg/dL AST 30 (14-36) U/L ALT 26 (0-35) U/L Alkaline Phosphatase 77 (38-126) U/L Troponin I < 0.012 (0.000-0.034) ng/mL NT-Pro-B Natriuret Pep 81.5 (0-900) pg/mL Serum Total Protein 8.4 H (6.3-8.2) g/dL Albumin 4.8 (3.5-5.0) g/dL Triglycerides (30-150) mg/dL Cholesterol (50-200) mg/dL LDL Cholesterol (30-100) mg/dL HDL Cholesterol (40-60) mg/dL Heart Disease Risk Ratio 03/01/20 03/01/20 03/01/20 Range/Units 15:15 17:41 21:10 WBC (4.0-10.5) K/mm3 RBC (4.1-5.4) M/mm3 Hgb (12.0-16.0) gm/dl Hct (35-47) % MCV (78-100) fl MCH (26-32) pg MCHC (32-36) g/dl RDW (11.5-14.0) % Plt Count (150-450) K/mm3 MPV (7.5-11.0) fl Gran % (36.0-66.0) % Eos # (Auto) (0-0.5) Absolute Lymphs (auto) (1.0-4.6) Absolute Monos (auto) (0.0-1.3) Lymphocytes % (24.0-44.0) % Monocytes % (0.0-12.0) % Eosinophils % (0.00-5.0) % Basophils % (0.0-0.4) % Absolute Granulocytes (1.4-6.9) Basophils # (0-0.4) D-Dimer 369 (215-500) ng/mL Sodium (137-145) mmol/L Potassium (3.5-5.1) mmol/L Chloride (98-107) mmol/L Carbon Dioxide (22-30) mmol/L Anion Gap (5-15) MEQ/L BUN (7-17) mg/dL Creatinine (0.52-1.04) mg/dL Estimated GFR ML/MIN Glucose (74-106) mg/dL Calcium (8.4-10.2) mg/dL Total Bilirubin (0.2-1.3) mg/dL AST (14-36) U/L ALT (0-35) U/L Alkaline Phosphatase (38-126) U/L Troponin I < 0.012 < 0.012 (0.000-0.034) ng/mL NT-Pro-B Natriuret Pep (0-900) pg/mL Serum Total Protein (6.3-8.2) g/dL Albumin (3.5-5.0) g/dL Triglycerides (30-150) mg/dL Cholesterol (50-200) mg/dL LDL Cholesterol (30-100) mg/dL HDL Cholesterol (40-60) mg/dL Heart Disease Risk Ratio 03/02/20 03/02/20 03/02/20 Range/Units 00:00 00:20 03:20 WBC (4.0-10.5) K/mm3 RBC (4.1-5.4) M/mm3 Hgb (12.0-16.0) gm/dl Hct (35-47) % MCV (78-100) fl MCH (26-32) pg MCHC (32-36) g/dl RDW (11.5-14.0) % Plt Count (150-450) K/mm3 MPV (7.5-11.0) fl Gran % (36.0-66.0) % Eos # (Auto) (0-0.5) Absolute Lymphs (auto) (1.0-4.6) Absolute Monos (auto) (0.0-1.3) Lymphocytes % (24.0-44.0) % Monocytes % (0.0-12.0) % Eosinophils % (0.00-5.0) % Basophils % (0.0-0.4) % Absolute Granulocytes (1.4-6.9) Basophils # (0-0.4) D-Dimer (215-500) ng/mL Sodium (137-145) mmol/L Potassium (3.5-5.1) mmol/L Chloride (98-107) mmol/L Carbon Dioxide (22-30) mmol/L Anion Gap (5-15) MEQ/L BUN (7-17) mg/dL Creatinine (0.52-1.04) mg/dL Estimated GFR ML/MIN Glucose (74-106) mg/dL Calcium (8.4-10.2) mg/dL Total Bilirubin (0.2-1.3) mg/dL AST (14-36) U/L ALT (0-35) U/L Alkaline Phosphatase (38-126) U/L Troponin I < 0.012 < 0.012 (0.000-0.034) ng/mL NT-Pro-B Natriuret Pep (0-900) pg/mL Serum Total Protein (6.3-8.2) g/dL Albumin (3.5-5.0) g/dL Triglycerides 229 H (30-150) mg/dL Cholesterol 165 (50-200) mg/dL LDL Cholesterol 82 (30-100) mg/dL HDL Cholesterol 53 (40-60) mg/dL Heart Disease Risk Ratio 3.1 - Radiology Exams Ordered Rad Exams-Entire Visit: Radiology Procedures Category Date Time Status CHEST 1 VIEW (PORTABLE) Stat Exams 03/01/20 15:02 Completed - Procedures and Test Procedures and Tests throughout Hospitalization: Therapy Orders & Screens 03/01/20 23:00 EKG ROUTINE Comment: Diagnosis: ACS 03/02/20 05:00 EKG ROUTINE Comment: Diagnosis: ACS 03/03/20 05:00 EKG ROUTINE Comment: Diagnosis: ACS 03/04/20 05:00 EKG ROUTINE Comment: Diagnosis: ACS - Discharge Disposition: Home, Self-Care Condition: Stable Prescriptions: Continue Pravastatin Sodium [Pravachol] 40 mg PO QHS Carvedilol 12.5 mg [Coreg 12.5 mg] 6.25 mg PO BID Lisinopril 10 mg [Zestril 10 MG] 20 mg PO QHS Meloxicam 7.5 mg [Mobic 7.5 MG] 7.5 mg PO QHS Additional Instructions: Patient needs to follow up with Dr Eaton Follow up with: ENMA MADRID [Primary Care Provider] - 1 Week
[2020-03-02 12:02] VITALS: BP 130/60; PULSE 62
== END 2020-03-02 12:50 | disposition home or self-care (01) ==
LOC: ED 14:51 → MED SURG 18:27
PROVIDERS: ADMIT Family Medicine; ATTEND Family Medicine
DX: R07.9 Chest pain, unspecified (principal); H92.02 Otalgia, left ear; I10 Essential (primary) hypertension; R42 Dizziness and giddiness; R51 Headache; Z79.899 Other long term (current) drug therapy
CPT/HCPCS: 36000; 36415; 71045; 80053; 80061; 83721; 83880; 84484; 85025; 85379; 93005; 93041; 93268; 94760; 99285; G0378; A9270-GY

== ENCOUNTER 2020-05-22 10:35 | Day surgery (SDC) | payer BC ==
--- NOTE | 2020-05-22 08:08 | HP ---
DATE OF SURGERY: 05/22/2020 HISTORY OF PRESENT ILLNESS: The patient is a 60 year old with prior history of hernia in the past had been seen for hernia repair had canceled and scheduled back on the schedule and now desires to have hernia repair at this time. PAST MEDICAL HISTORY: Hypertension, hyperlipidemia. PAST SURGICAL HISTORY: She denied any prior surgery. MEDICATIONS: Lisinopril, meloxicam, pravastatin, carvedilol. ALLERGIES: PENICILLIN. FAMILY HISTORY: Cancer. SOCIAL HISTORY: No smoking or alcohol abuse. REVIEW OF SYSTEMS: Fourteen systems reviewed. She had been seen by Dr. Eaton in the past and received cardiac clearance from him. No current chest pain or palpitations. Other systems negative or noncontributory as above and per preadmission questionnaire. PHYSICAL EXAMINATION: GENERAL: No acute distress. HEENT: Sclerae nonicteric. NECK: No JVD. CHEST: Equal excursion, nonlabored breathing. CVS: Regular rate and rhythm. ABDOMEN: Soft. Left inguinal hernia. No peritoneal signs. EXTREMITIES: No edema or cyanosis. NEURO: Alert, oriented, moving extremities grossly symmetrically. No gross motor deficits noted. PSYCH: Appropriate mood and affect. IMPRESSION: Left inguinal hernia. I feel the patient will benefit from repair. Best options were open versus laparoscopic. I had a long discussion with the patient and prefers to go ahead with laparoscopic repair of left inguinal hernia with mesh possible open. Risks and benefits explained in detail not limited to bleeding or infection, risk of bowel injury or perforation, risk of bowel or bladder, blood vessel or ureter issues or injury, possible need for open procedure, risk of hernia recurrence, risk of mesh infection possibly requiring removal, risk of urinary retention perioperatively, risk of aches, pains, burning, numbness lower abdomen, groin, thigh area possible long wall mining machine tender or chronic in nature up to 10 to 12%, possible development of hernia on the opposite site that may require intervention down the road, general risk of anesthesia, deep venous thrombosis, pulmonary embolism, pneumonia. Risk of obstruction, risk of scar formation, possible need for open procedure, general risk of anesthesia, deep venous thrombosis, pulmonary embolism, pneumonia but not limited to. She understands and agrees to the planned procedure, will proceed with outpatient laparoscopic left inguinal hernia with mesh possible open.
[~2020-05-22 10:35] MED LIST: CLINDAMYCIN-D5W 900 MG/50 ML*** 900 MG/50 ML BAG IV SCH; Lactated Ringers 1,000 ML IV ONE; Lactated Ringers 1,000 ML IV SCH; Sensorcaine 0.25% 10 ML ONE
[2020-05-22 11:31] LABS: ANION GAP 15.1 MEQ/L (5-15); BLOOD UREA NITROGEN 18 mg/dL (7-17); CHLORIDE 106 mmol/L (98-107); Calcium 9.7 mg/dL (8.4-10.2); Carbon Dioxide 24 mmol/L (22-30); Creatinine 1 0.65 mg/dL (0.52-1.04); Glucose 96 mg/dL (74-106); Potassium 4.7 mmol/L (3.5-5.1); SODIUM 141 mmol/L (137-145)
[2020-05-22] MEDS ORDERED: Zemuron 100 MG/10 ML ONE ×3 (14:13→16:05)
[2020-05-22] MEDS ORDERED: Versed 2 MG/2 ML Injection ONE (14:13)
[2020-05-22] MEDS ORDERED: SUBLIMAZE 250 MCG/5 ML ONE (14:13)
[2020-05-22] MEDS ORDERED: DIPRIVAN 200 MG/20 ML IV ONE (14:13)
[2020-05-22] MEDS ORDERED: Xylocaine-Mpf 2% 5 Ml Vial ONE (14:19)
[2020-05-22] MEDS ORDERED: BRIDION 200MG/2ML IV ONE (16:07)
[2020-05-22] MEDS ORDERED: MORPHINE SULFATE 10 MG/ML ONE (16:15)
[2020-05-22] MEDS ORDERED: TRANDATE 100 MG/20 ML MDV FOR DRIP IV ONE (16:31)
[2020-05-22] MEDS ORDERED: SUBLIMAZE 100 MCG/2 ML ONE (16:46)
[2020-05-22 17:03] LABS: Appearance CLEAR (CLEAR); Bilirubin NEGATIVE (NEGATIVE); Blood NEGATIVE Ery/ul (0-5); Glucose NEGATIVE (NEGATIVE); Ketones NEGATIVE (NEGATIVE); Leukocyte Esterase NEGATIVE (NEGATIVE); Mucus SLIGHT /HPF (NEGATIVE); Nitrite NEGATIVE (NEGATIVE); Protein,Urine Dip NEGATIVE (Negative); Specific Gravity 1.021 (1.005-1.025); Urobilinogen NEGATIVE mg/dL (0-1)
[2020-05-22 17:14] LABS: Bacteria NONE SEEN /HPF (NEGATIVE)
[2020-05-22] MEDS ORDERED: NORCO 5/325 MG PO PRN (17:19)
[2020-05-22] MEDS ORDERED: Zofran 4 MG/2 ML VIAL IV STA (18:13)
[2020-05-22] MEDS ORDERED: Zofran 4 MG/2 ML VIAL ONE (18:14)
[2020-05-22] MEDS ORDERED: Transderm Scop 1.5MG Patch TOP ONE (18:21)
[2020-05-22] MEDS ORDERED: Transderm Scop 1.5MG Patch ONE (18:21)
[2020-05-22] MEDS ORDERED: Compazine 10 MG/2 ML IV ONE (18:22)
[2020-05-22] MEDS ORDERED: Compazine 10 MG/2 ML ONE (18:24)
[2020-05-22 18:47] VITALS: BP 116/81; PULSE 67; O2SAT 95
--- NOTE | 2020-05-23 11:31 | OP ---
SURGERY DATE/TIME: 05/22/2020 1412 PREOPERATIVE DIAGNOSIS: Symptomatic left inguinal hernia. POSTOPERATIVE DIAGNOSES: 1) Left inguinal hernia. 2) Separate site incarcerated left abdominal wall ventral hernia. Incarcerated omentum and preperitoneal fat (separate site repaired with separate mesh). PROCEDURES: 1) Laparoscopic repair of incarcerated left abdominal ventral hernia mesh. 2) Repair of separate site left inguinal hernia with separate mesh. SURGEON: Dr. Tacos Guevara. ANESTHESIA: General. ESTIMATED BLOOD LOSS: Minimal. INDICATIONS: As noted above. Risks and benefits explained in detail and not limited to and consent was obtained. The site had been marked and confirmed in the preoperative holding area. DESCRIPTION OF PROCEDURE AND FINDINGS: The patient is taken to the operating room. General anesthesia was induced. The abdomen was prepped and draped in usual sterile fashion. After official time out and no disagreement with planned procedure, a transverse incision made in the supraumbilical area. Fascia grasped and pulled up. Veress needle inserted and tested with saline. Pneumoperitoneum accomplished insufflating opening pressure 0-15. A 12 mm bladeless port and camera inserted without difficulty, this was then switched out and the puncture closure device used to place the transfascial suture to close the fascial defect at the end of the procedure. The port was replaced. Another 5 mm left mid abdomen port placed and right mid abdomen 5 mm port and later a lower midline 5 mm port was placed. There was evidence that the patient did not have any evidence of any right inguinal hernia. She did in fact have indirect left inguinal hernia that was in need of repair with mesh. She had a separate site left abdominal wall ventral hernia. She reportedly did not have any trocar ports or other procedures in the past but this had the appearance of kind of a port area left lateral abdominal wall incarcerated ventral hernia site that had incarcerated omentum. It had incarcerated preperitoneal fat in it. This took some time but the hernia sac was slowly and carefully reduced of incarcerated omentum and preperitoneal fat. The hernia sac incarcerated preperitoneal fat had been freed, placed in a bag, removed and passed off. At this point it was felt the patient would benefit from repairing of these two separate areas with separate pieces of mesh. Then began the dissection staying in the retrorectus space down to the pubis along Raoul's ligament and was carefully cleared leaving the fat pad downwards staying right on the rectus space laterally staying on the peritoneal reflection. The fibrofat pad was left up against the abdominal wall. Once this was cleared and the peritoneum cleared off the round ligament and iliac vessels to where the 3DMax mesh could cover both the direct, indirect and femoral spaces. A large 3DMax mesh was available and was inserted. It was felt it covered the spaces appropriately. The other ventral hernia was up above where the 3DMax was felt it needed a separate mesh repair. First with a spinal needle marking the location it was felt the 4.3 c.m. to be the most appropriate size of mesh to reduce the risk of aches and pains to tacking a large piece of mesh there while still allowing coverage of the defect after transfacial 0 PDS was used to bring the fascia back to its more normal position with [address] 4.3 c.m. carefully strap was removed and stay suture of 0 Vicryl was placed in the middle. It was then carefully inserted. It was pulled up with a stay suture in the center of the defect and then tacked with SorbaFix tacker circumferentially around the edges. Once this was accomplished, I went back to the position of 3DMax. It was carefully tacked to the Raoul's ligament and the fascia overlying the pubic area with a capture tacker. An additional tack was placed on either side of the inferior epigastric vessel with the pressure turned down to 8 to avoid distortion of the abdominal wall, this laid in nice good position covering the femoral direct and indirect spaces. The other ventral hernia had been repaired with separate mesh that was nice and flat in good position. At this point peritoneum was then tacked up with SorbaFix covering the mesh as well as possible. Again, there was no INTERCEED or other coated product to further buttress as the peritoneum was thinned out a little bit but it seemed to have good coverage. Good hemostasis noted. Pneumoperitoneum was slowly decompressed. The mesh seemed to be in good position. 0.25% Marcaine local injected along the skin incision back towards the origin of the inguinal nerve back towards the anterior iliac spine and also lateral to the left abdomen incarcerated ventral hernia repair site. Again, the 12 mm fascial defect had been closed with #1 Vicryl, stay suture was secured. Skin incisions closed with 4-0 Vicryl. Steri-Strips and sterile dressings applied. The patient tolerated the procedure well. There were no immediate complications. Findings discussed with the family out in the waiting area. She was transferred to the recovery room in stable condition.
== END 2020-05-22 19:05 | disposition home or self-care (01) ==
LOC: SDC 10:35
PROVIDERS: ATTEND Surgery
DX: K40.90 Unilateral inguinal hernia, without obstruction or gangrene, not specified as recurrent (principal); K43.6 Other and unspecified ventral hernia with obstruction, without gangrene; I10 Essential (primary) hypertension; E78.5 Hyperlipidemia, unspecified; Z79.899 Other long term (current) drug therapy
CPT/HCPCS: 36415; 80048; 81001; 87086; C1781; J2250; J2270; J2405; J2704; J3010; A9270-GY

== ENCOUNTER 2020-11-26 15:41 | Emergency (ER) | payer BC ==
[2020-11-26 15:58] VITALS: O2SAT 98
[2020-11-26] MEDS ORDERED: TORAdol 30 mg Injection IM ONE (16:28)
[2020-11-26] MEDS ORDERED: TORAdol 30 mg Injection ONE (16:31)
--- NOTE | 2020-11-26 16:32 | ERPHSYRPT ---
- History of Present Illness Time Seen by Provider: 11/26/20 16:29 Source: patient Exam Limitations: no limitations Patient Subjective Stated Complaint: L knee pain that radiates down to lower leg. L knee swelling x 2 days Triage Nursing Assessment: pt to ED c/o L knee and lower leg apin and swelling. states legs sometimes do well but go down on their own by end of day. this pain and swelling has been continupus x 2 days. noted L knee swelling that is tender to plap. rates 9/10 aching ain that radiates down leg. ambulatory with mild limp. reports hx arthritis. Physician History: Left knee pain that radiates down to lower leg. Left knee swelling x 2 days c/o L knee and lower leg apin and swelling. states legs sometimes do well but go down on their own by end of day. this pain and swelling has been continupus x 2 days. noted L knee swelling that is tender to plap. rates 9/10 aching ain that radiates down leg. ambulatory with mild limp. hx arthritis. Method of Injury: unknown Occurred: last week Quality: constant Severity of Pain-Max: moderate Severity of Pain-Current: moderate Lower Extremities Pain: knee: left Modifying Factors: Improves With: cold therapy Associated Symptoms: none Allergies/Adverse Reactions: Penicillins Allergy (Verified 11/26/20 15:58) breathing states "severe mold allergy" Home Medications: Carvedilol 12.5 mg [Coreg 12.5 mg] 6.25 mg PO BID 09/23/18 [History] Lisinopril 10 mg [Zestril 10 MG] 20 mg PO QHS 09/23/18 [History] Pravastatin Sodium [Pravachol] 40 mg PO QHS 09/23/18 [History] Meloxicam 7.5 mg [Mobic 7.5 MG] 7.5 mg PO QHS 03/01/20 [History] Multivitamin [Multivitamins] 1 each PO DAILY 05/12/20 [History] Cefdinir [Omnicef 300 mg] 300 mg PO BID 05/22/20 [History] Hx Tetanus, Diphtheria Vaccination/Date Given: No Hx Influenza Vaccination/Date Given: No Hx Pneumococcal Vaccination/Date Given: No Travel Risk - International Travel Have you traveled outside of the country in past 3 weeks: No - Coronavirus Screening Are you exhibiting any of the following symptoms?: No Close contact with a COVID-19 positive Pt in past 14-21 Days: No - Review of Systems Constitutional: No Fever, No Chills Eyes: No Symptoms Ears, Nose, & Throat: No Symptoms Respiratory: No Cough, No Dyspnea Cardiac: No Chest Pain, No Edema, No Syncope Abdominal/Gastrointestinal: No Abdominal Pain, No Nausea, No Vomiting, No Diarrhea Genitourinary Symptoms: No Dysuria Musculoskeletal: Joint Redness, Joint Pain, Joint Swelling (left knee), No Back Pain, No Neck Pain, No Deformity, No Fall Skin: No Rash Neurological: No Dizziness, No Focal Weakness, No Sensory Changes Psychological: No Symptoms Endocrine: No Symptoms All Other Systems: Reviewed and Negative - Past Medical History Pertinent Past Medical History: Yes Neurological History: No Pertinent History ENT History: No Pertinent History Cardiac History: Angina, Arrhythmia, Coronary Artery Disease, High Cholesterol, Hypertension, Other Respiratory History: No Pertinent History Endocrine Medical History: No Pertinent History Musculoskeletal History: Arthritis GI Medical History: GERD, Hernia History: No Pertinent History Psycho-Social History: No Pertinent History Female Reproductive Disorders: No Pertinent History 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 hx of fx 3 vertebrae in the neck,fx lt side of jaw and skull fx from 1981 - Past Surgical History Past Surgical History: Yes Neuro Surgical History: No Pertinent History Cardiac: Cardiac Catheterization Respiratory: No Pertinent History Gastrointestinal: Hernia Repair Genitourinary: No Pertinent History Musculoskeletal: No Pertinent History Female Surgical History: No Pertinent History Other Surgical History: hx of fx 3 vertebrae in the neck,fx lt side of jaw and skull fx from 1981, no past surgeries,colonoscopy times 2 - Social History Smoking Status: Never smoker Exposure to second hand smoke: No Drug Use: none Patient Lives Alone: No - Female History Hx Now: No - Nursing Vital Signs Nursing Vital Signs: Initial Vital Signs Temperature 97.5 F 11/26/20 15:49 Pulse Rate 67 11/26/20 15:49 Respiratory Rate 18 11/26/20 15:49 Blood Pressure 154/81 11/26/20 15:49 O2 Sat by Pulse Oximetry 98 11/26/20 15:49 Pain Scale Pain Intensity 8 - Physical Exam General Appearance: alert Eyes, Ears, Nose, Throat Exam: moist mucous membranes Neck Exam: non-tender, supple Cardiovascular/Respiratory Exam: chest non-tender, normal breath sounds, regular rate/rhythm, no respiratory distress Gastrointestinal/Abdominal Exam: non-tender, guarding Back Exam: normal inspection, No vertebral tenderness Knees Exam: left knee: no evidence of injury, bone tenderness, pain, soft tissue tenderness, swelling Neuro/Tendon Exam: normal sensation, normal motor functions Mental Status Exam: alert, oriented x 3, cooperative Skin Exam: normal color, warm, dry SpO2: 98 - Course Nursing assessment & vital signs reviewed: Yes - Radiology Exams Knee X-ray Interpretation: Reviewed by me, Negative, No Fracture Ordered Tests: Active Orders 24 hr Category Date Time Status KNEE (3 VIEWS) Stat Exams 11/26/20 16:29 Completed CBC W DIFF Stat Lab 11/26/20 16:50 Completed CMP Stat Lab 11/26/20 16:50 Completed Uric Acid Stat Lab 11/26/20 16:50 Completed Medication Summary Discontinued Medications Generic Name Dose Route Start Last Admin Trade Name Reva PRN Reason Stop Dose Admin Ketorolac Tromethamine 60 mg 11/26/20 16:28 11/26/20 16:34 Toradol 30 Mg Injection IM 11/26/20 16:29 60 mg STAT ONE Administration Ketorolac Tromethamine Confirm 11/26/20 16:31 Toradol 30 Mg Injection Administered 11/26/20 16:32 Dose 60 mg .ROUTE .[facility]-MED ONE Lab/Rad Data: Laboratory Result Diagrams 11/26/20 16:50 11/26/20 16:50 Laboratory Results 11/26/20 11/26/20 11/26/20 Range/Units 16:50 16:50 16:50 WBC 11.5 H (4.0-10.5) K/mm3 RBC 4.71 (4.1-5.4) M/mm3 Hgb 13.4 (12.0-16.0) gm/dl Hct 42.2 (35-47) % MCV 89.6 (78-100) fl MCH 28.5 (26-32) pg MCHC 31.8 L (32-36) g/dl RDW 13.7 (11.5-14.0) % Plt Count 341 (150-450) K/mm3 MPV 9.5 (7.5-11.0) fl Gran % 69.0 H (36.0-66.0) % Eos # (Auto) 0.18 (0-0.5) Absolute Lymphs (auto) 2.46 (1.0-4.6) Absolute Monos (auto) 0.90 (0.0-1.3) Lymphocytes % 21.4 L (24.0-44.0) % Monocytes % 7.8 (0.0-12.0) % Eosinophils % 1.6 (0.00-5.0) % Basophils % 0.2 (0.0-0.4) % Absolute Granulocytes 7.91 H (1.4-6.9) Basophils # 0.02 (0-0.4) Sodium 133 L (137-145) mmol/L Potassium 4.4 (3.5-5.1) mmol/L Chloride 98 (98-107) mmol/L Carbon Dioxide 28 (22-30) mmol/L Anion Gap 12.1 (5-15) MEQ/L BUN 21 H (7-17) mg/dL Creatinine 0.73 (0.52-1.04) mg/dL Estimated GFR > 60.0 ML/MIN Glucose 95 (74-106) mg/dL Uric Acid 4.7 (2.6-6.0) mg/dL Calcium 9.7 (8.4-10.2) mg/dL Total Bilirubin 0.50 (0.2-1.3) mg/dL AST 21 (14-36) U/L ALT 17 (0-35) U/L Alkaline Phosphatase 64 (38-126) U/L Serum Total Protein 7.5 (6.3-8.2) g/dL Albumin 4.4 (3.5-5.0) g/dL - Progress Progress: improved, pain not gone completely Counseled pt/family regarding: lab results, diagnosis, need for follow-up, rad results - Departure Departure Disposition: Home Clinical Impression: Localized osteoarthritis of left knee Condition: Stable Critical Care Time: No Referrals: ENMA MADRID [Primary Care Provider] - Follow Up with PCP/3 days Instructions: Osteoarthritis, Knee Pain (DC) Additional Instructions: Please take your meloxicam 7.5 mg twice a day. Follow-up with your primary care physician for further management of your osteoarthritis of your knee. Discharge/Care Plan JOÃO HERNANDES was seen on 11/26/20 in the Emergency Room. The patient was counseled regarding Diagnosis,Lab results, Imaging studies, need for follow up and when to return to the Emergency Room. Prescriptions given: Discharge Note I have spoken with the patient and/or caregivers. I have explained the patient's condition, diagnosis and treatment plan based on the information available to me at this time. I have answered the patient's and/or caregiver's questions and addressed any concerns. The patient and/or caregivers have as good understanding of the patient's diagnosis, condition and treatment plan as can be expected at this point. The vital signs have been stable. The patient's condition is stable and appropriate for discharge from the emergency department. The patient will pursue further outpatient evaluation with the primary care physician or other designated or consulting physician as outlined in the discharge instructions. The patient and/or caregivers are agreeable to this plan of care and follow-up instructions have been explained in detail. The patient and/or caregivers have received these instruction. The patient/and or caregivers are aware that any significant change in condition or worsening of symptoms should prompt an immediate return to this or the closest emergency department or call 911. JOÃO HERNANDES was seen on 11/26/20 n the Emergency Room. At that time you were treated for an emergent condition, during your visit Laboratory, Radiology and/or other procedures may have been ordered. It is very important that you follow-up with your Primary Care Physician ENMA MADRID within the next 24-48 hours to review your Emergency Room visit and the final results of testing that was ordered. Some test results such as Urine Cultures, Blood Cultures, and other cultures if ordered will not be finalized for 24-48 hours. If you do not have a Primary Care Provider please call the medical records department at [phone] ext [phone] to obtain a copy of your results or you may sign into our patient portal to obtain these results by visiting us @ [email or web address] and completing the following steps: 1. Click on the Patient Portal link 2. Click the Patient Self Enrollment Link to complete the enrollment form and entering your 3. Once the enrollment form is completed you will receive an email with a temporary ID and password at the email address you provided. 4. Next choose a user name and password. Your user name must be at least 4 characters long and your password must be at least 4 characters long. 5. Choose a security question from the list and provide your answer to the question. If you already have signed into the Health Portal you may access your Health Care Information 19/05 by the following steps: 1. Login to our website @ [email or web address] 2. Enter your original user name and password. FAQS The [facility] Health Portal is an online tool that contains your Lab Results, Radiology Reports, Visit History, Discharge Instructions and Health Summary Lab and Radiology Results will not be available for 72 hours on the portal. The Portal is a secure site, passwords are encryted and URLs are re-written so they cannot be copied and pasted. You and authorized family members are the only ones who can access your Portal. Also there is a timeout feature that protects your information if you leave the Portal page open. If you have technical difficulty please use the Contact Us link on the page this will allow you to submit any questions you have regarding the Portal or you may contact the Medical Record Department at [phone] ext [phone].
--- NOTE | 2020-11-26 16:49 | XRAY ---
Indication: Pain and swelling. No known injury. Comparison: None 3 view left knee demonstrates moderate/advanced tricompartmental degenerative changes greatest lateral compartment with small posterior heterotopic ossifications and small nonspecific effusion. No other bony, articular, or soft tissue abnormalities.
[2020-11-26 16:54] LABS: Absolute Neutrophil Ct (ANC) 7.91 (1.4-6.9); BASOPHIL % 0.2 % (0.0-0.4); Basophil (Absolute #) 0.02 (0-0.4); Eosinophil % 1.6 % (0.00-5.0); Eosinophil (Absolute #) 0.18 (0-0.5); Hematocrit 42.2 % (35-47); Hemoglobin 13.4 gm/dl (12.0-16.0); Lymphocyte (Absolute #) 2.46 (1.0-4.6); Lymphocytes % 21.4 % (24.0-44.0); Mean Cell Volume 89.6 fl (78-100); Mean Corpuscular Hemoglobin 28.5 pg (26-32); Mean Corpuscular Hgb Concent. 31.8 g/dl (32-36); Mean Platelet Volume 9.5 fl (7.5-11.0); Monocytes % 7.8 % (0.0-12.0); Platelet Count 341 K/mm3 (150-450); Red Blood Count 4.71 M/mm3 (4.1-5.4); Red Cell Distribution Width 13.7 % (11.5-14.0); White Blood Count 11.5 K/mm3 (4.0-10.5)
[2020-11-26 17:08] LABS: ALBUMIN 4.4 g/dL (3.5-5.0); ALKALINE PHOSPHATASE 64 U/L (38-126); ANION GAP 12.1 MEQ/L (5-15); BLOOD UREA NITROGEN 21 mg/dL (7-17); CHLORIDE 98 mmol/L (98-107); Calcium 9.7 mg/dL (8.4-10.2); Carbon Dioxide 28 mmol/L (22-30); Creatinine 1 0.73 mg/dL (0.52-1.04); EST GLOMERULAR FILTRATION RATE > 60.0 ML/MIN; Glucose 95 mg/dL (74-106); Potassium 4.4 mmol/L (3.5-5.1); SGOT/AST 21 U/L (14-36); SGPT/ALT 17 U/L (0-35); SODIUM 133 mmol/L (137-145); Total Protein 7.5 g/dL (6.3-8.2)
[2020-11-26 17:18] VITALS: BP 150/70; PULSE 73
== END 2020-11-26 17:37 | disposition home or self-care (01) ==
LOC: ED 15:41
DX: M25.562 Pain in left knee (principal); M79.662 Pain in left lower leg; M17.12 Unilateral primary osteoarthritis, left knee; M79.89 Other specified soft tissue disorders; E78.5 Hyperlipidemia, unspecified; I10 Essential (primary) hypertension; Z79.899 Other long term (current) drug therapy
CPT/HCPCS: 36415; 73562; 80053; 84550; 85025; 96372; 99284; J1885

== ENCOUNTER 2022-07-15 09:30 | Day surgery (SDC) | payer BC ==
--- NOTE | 2022-07-15 07:47 | HP ---
DATE OF SURGERY: 07/15/2022 HISTORY OF PRESENT ILLNESS: The patient is a 62-year-old presents with node or nodule on her neck. She is concerned and would like definitive biopsy for tissue diagnosis. She had been scheduled back in May but had canceled and wanted to reschedule. PAST MEDICAL HISTORY: Hypertension, arthritis. PAST SURGICAL HISTORY: Left inguinal and left abdominal wall hernias repaired in the past. She had heart cath in the past. MEDICATIONS: Meloxicam, lisinopril, carvedilol, low dose aspirin, ezetimibe. ALLERGIES: PENICILLIN. FAMILY HISTORY: Negative for cancer. SOCIAL HISTORY: No alcohol abuse. REVIEW OF SYSTEMS: Fourteen systems reviewed. No chest pain or palpitations. Other systems negative or noncontributory as above and per preadmission questionnaire. PHYSICAL EXAMINATION: GENERAL: No acute distress. HEENT: Sclerae nonicteric. NECK: No JVD. Posterior neck node or nodule. CHEST: Equal excursion, nonlabored breathing. CVS: Regular rate and rhythm. ABDOMEN: Soft. EXTREMITIES: No significant edema. NEURO: Alert, oriented, moving extremities symmetrically. PSYCH: Appropriate mood and affect. IMPRESSION: Persistent node or nodule posterior neck. I feel the patient would benefit from excisional biopsy for definitive path. Risks and benefits explained in detail including but not limited to bleeding or infection, risk of aches, pains, burning, numbness possibly middle or intermediate school principal or chronic in nature. Risk of missed or nondiagnosis possibly further biopsy at other locations. General risk of anesthesia, deep venous thrombosis, pulmonary embolism, or pneumonia but not limited to, consent obtained. Will proceed with biopsy neck nodule or node as an outpatient.
[~2022-07-15 09:30] MED LIST changes: -CLINDAMYCIN-D5W 900 MG/50 ML*** 900 MG/50 ML BAG IV SCH; -Lactated Ringers 1,000 ML IV SCH
[2022-07-15] MEDS ORDERED: Lactated Ringers 1,000 ML IV ONE (09:48)
[2022-07-15] MEDS ORDERED: Lactated Ringers 1,000 ML IV SCH (10:00)
[2022-07-15] MEDS ORDERED: CLINDAMYCIN-D5W 900 MG/50 ML*** 900 MG/50 ML BAG IV SCH (10:30)
[2022-07-15 10:36] LABS: ANION GAP 12.4 MEQ/L (5-15); BLOOD UREA NITROGEN 15 mg/dL (7-17); CHLORIDE 105 mmol/L (98-107); Carbon Dioxide 25 mmol/L (22-30); Creatinine 1 0.51 mg/dL (0.52-1.04); EST GLOMERULAR FILTRATION RATE > 60.0 ML/MIN; Glucose 95 mg/dL (74-106); Potassium 4.5 mmol/L (3.5-5.1); SODIUM 139 mmol/L (137-145)
[2022-07-15] MEDS ORDERED: DIPRIVAN 200 MG/20 ML IV ONE (11:43)
[2022-07-15] MEDS ORDERED: Versed 2 MG/2 ML Injection ONE (11:43)
[2022-07-15] MEDS ORDERED: SUBLIMAZE 100 MCG/2 ML ONE ×3 (11:43→12:06)
[2022-07-15 13:32] VITALS: BP 180/95; PULSE 64; O2SAT 98
--- NOTE | 2022-07-15 14:55 | OP ---
SURGERY DATE/TIME: 07/15/2022 1137 PREOPERATIVE DIAGNOSIS: Persistent nodule or node posterior neck. POSTOPERATIVE DIAGNOSIS: Persistent nodule or node posterior neck. PROCEDURE: Excisional biopsy right neck lipomatous density approximately 2 cm in vivo. SURGEON: Dr. Tacos Guevara. ANESTHESIA: MAC. 1% lidocaine local. ESTIMATED BLOOD LOSS: Minimal. INDICATIONS: As noted above. Risks and benefits explained in detail and not limited to and consent obtained. The site had been confirmed and marked with the patient in the preoperative holding area. DESCRIPTION OF PROCEDURE AND FINDINGS: He is taken to the operating room. Lateral position. She was prepped and draped in the usual sterile fashion. After official time out and no disagreement with planned procedure, infiltrating 1% lidocaine local around. A transverse incision made dissection carried down to subcu to the level of the fascia. She appeared to have a lipomatous density that is slowly carefully freed from surrounding more normal subcutaneous and fascial structures this is carefully mobilized upwards and measured about 2 cm in size and passed off for pathology. There was one small, little club car attendant controlled with 3-0 Vicryl suture ligature. There was no other palpable density, nodes or nodules in any deeper locations. It seemed to be lipomatous in nature and passed off for pathology. The wound is irrigated out. Good hemostasis noted. Subcu closed with 3-0 Vicryl. Skin closed with 4-0 Vicryl. Steri-Strips and sterile dressing applied. The patient tolerated the procedure well. There were no immediate complications. I will discuss with the family out in the waiting area.
== END 2022-07-15 13:40 | disposition home or self-care (01) ==
LOC: SDC 09:30
PROVIDERS: ATTEND Surgery
DX: D17.0 Benign lipomatous neoplasm of skin and subcutaneous tissue of head, face and neck (principal)
CPT/HCPCS: 36415; 80048; 93005; J2250; J2704; J3010

== ENCOUNTER 2024-12-06 11:32 | Emergency (ER) | payer BC ==
[2024-12-06 11:41] VITALS: TEMP 96.5
[2024-12-06] MEDS ORDERED: Zofran 4 MG/2 ML VIAL ONE (12:53)
[2024-12-06] MEDS: Zofran 4 MG/2 ML VIAL IV ONE (12:59)
[2024-12-06 13:01] LABS: Absolute Neutrophil Ct (ANC) 3.98 x10^3/uL (1.56-6.13); BASOPHIL % 0.6 % (0.1-1.2); Basophil (Absolute #) 0.04 x10^3/uL (0.01-0.08); Eosinophil % 2.1 % (0.7-5.8); Eosinophil (Absolute #) 0.14 x10^3/uL (0.04-0.36); Hematocrit 38.6 % (34.1-44.9); Hemoglobin 12.6 g/dL (11.2-15.7); IMMATURE GRAN # 0.02 x10^3u/L (0.001-0.031); IMMATURE GRAN % 0.3 % (0.001-0.429); Lymphocyte (Absolute #) 1.86 x10^3/uL (1.18-3.74); Lymphocytes % 28.3 % (19.3-51.7); Mean Cell Volume 86.2 fL (79.4-94.8); Mean Corpuscular Hemoglobin 28.1 pg (25.6-32.2); Mean Corpuscular Hgb Concent. 32.6 g/dL (32.2-35.5); Mean Platelet Volume 9.9 fL (9.4-12.3); Monocyte (Absolute #) 0.53 x10^3/uL (0.24-0.86); Monocytes % 8.1 % (4.7-12.5); Neutrophil % 60.6 % (34.0-71.1); Platelet Count 336 x10^3/uL (182-369); Red Blood Count 4.48 x10^6/uL (3.93-5.22); Red Cell Distribution Width 13.4 % (11.7-14.4); White Blood Count 6.6 x10^3/uL (3.98-10.04)
[2024-12-06 13:21] LABS: ALBUMIN 4.6 g/dL (3.5-5.0); ALKALINE PHOSPHATASE 78 U/L (38-126); ANION GAP 11.4 MEQ/L (5-15); BLOOD UREA NITROGEN 18 mg/dL (7-17); CHLORIDE 105 mmol/L (98-107); Calcium 9.6 mg/dL (8.4-10.2); Carbon Dioxide 26 mmol/L (22-30); Creatinine 1 0.88 mg/dL (0.52-1.04); EST GLOMERULAR FILTRATION RATE 73.8 ML/MIN; Glucose 82 mg/dL (74-106); Potassium 4.1 mmol/L (3.5-5.1); SGOT/AST 32 U/L (14-36); SGPT/ALT 27 U/L (0-35); SODIUM 138 mmol/L (135-145); TROPONIN < 0.012 ng/mL (0.000-0.033); Total Protein 7.8 g/dL (6.3-8.2)
[2024-12-06 15:04] VITALS: BP 126/71; PULSE 66; RESP 13; O2SAT 100
--- NOTE | 2024-12-06 15:04 | XRAY ---
Indication: Dizziness. Multiple contiguous axial images obtained through the head without contrast. Comparison: March 09, 2024 Again age-appropriate global atrophy and minimal periventricular degenerative micro-ischemia. No acute intracranial hemorrhage, abnormal extra-axial fluid collection, or mass effect. Fourth ventricle is midline without hydrocephalus. Arceo-white matter differentiation preserved. Bony calvarium intact. Visualized paranasal sinuses and mastoid air cells are clear. Impression: Continued nonacute senile brain.
--- NOTE | 2024-12-06 15:12 | XRAY ---
Indication: Chest pain. Multiple contiguous axial images obtained through the chest using 80 cc Isovue 370 contrast and PE protocol. Comparison: None Good opacification pulmonary arteries to include the lobar and segmental branches. No pulmonary embolus. Heart not enlarged. Aorta is normal in course and caliber. No pathologic mediastinal/hilar lymphadenopathy. Lungs inflated and clear. Bony thorax intact with mild/moderate multilevel degenerative spondylosis. Limited upper abdomen demonstrates 1.8 cm left lobe hepatic cyst. Impression: Hepatic cyst and multilevel degenerative spondylosis. Remaining CT chest pulmonary embolus exam is normal.
--- NOTE | 2024-12-06 15:29 | ERPHSYRPT ---
- History of Present Illness Time Seen by Provider: 12/06/24 12:05 Source: patient Exam Limitations: no limitations Patient Subjective Stated Complaint: Chest pain Triage Nursing Assessment: Patient ambulated back to ED and transferred self to bed. Patient A+O X3. Patient's skin pink, warm and dry. Patient was sent over by PCP Denisse Lara NP after a dr visit due to been having intermittent chest pain, fatigue, dizziness intermittently since yesterday. Patient denies pain or discomfort. Timing/Duration: today Severity: mild Associated Symptoms: denies symptoms Allergies/Adverse Reactions: Penicillins Allergy (Verified 12/06/24 11:35) breathing states "severe mold allergy" Home Medications: Carvedilol 12.5 mg [Coreg 12.5 mg] 6.25 mg PO BID 09/23/18 [History] Lisinopril 10 mg [Zestril 10 MG] 20 mg PO BID 09/23/18 [History] Meloxicam 7.5 mg [Mobic 7.5 MG] 7.5 mg PO QHS 03/01/20 [History] Aspirin EC 81 mg [Ecotrin 81 mg] 81 mg PO DAILY 05/22/21 [History] Ezetimibe 10 mg [Zetia 10 MG] 10 mg PO HS 05/22/21 [History] Hx Tetanus, Diphtheria Vaccination/Date Given: No Hx Influenza Vaccination/Date Given: No Hx Pneumococcal Vaccination/Date Given: No Immunizations Up to Date: Yes Travel Risk - International Travel Have you traveled outside of the country in past 3 weeks: No - Emerging Infectious Disease Are you exhibiting symptoms associated with any current EIDs: No - Review of Systems Eyes: No Symptoms Ears, Nose, & Throat: No Symptoms Respiratory: No Symptoms Cardiac: No Symptoms Abdominal/Gastrointestinal: No Symptoms Genitourinary Symptoms: No Symptoms Neurological: Dizziness - Past Medical History Pertinent Past Medical History: Yes Neurological History: No Pertinent History ENT History: No Pertinent History Cardiac History: Angina, Arrhythmia, Coronary Artery Disease, High Cholesterol, Hypertension, Other Respiratory History: No Pertinent History Endocrine Medical History: No Pertinent History Musculoskeletal History: Arthritis GI Medical History: GERD, Hernia History: No Pertinent History Psycho-Social History: No Pertinent History Female Reproductive Disorders: No Pertinent History 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 hx of fx 3 vertebrae in the neck,fx lt side of jaw and skull fx from [facility] 1981 - Past Surgical History Past Surgical History: Yes Neuro Surgical History: No Pertinent History Cardiac: Cardiac Catheterization Respiratory: No Pertinent History Gastrointestinal: Hernia Repair Genitourinary: No Pertinent History Musculoskeletal: No Pertinent History Female Surgical History: No Pertinent History Other Surgical History: hx of fx 3 vertebrae in the neck,fx lt side of jaw and skull fx from 1981,colonoscopy x2, heart cath - Social History Smoking Status: Never smoker Exposure to second hand smoke: No Drug Use: none Patient Lives Alone: No - Social Determinants of Health Will the patient participate in the screening: Yes Do you worry about a steady place to live?: No Do you have any problems with any of the following?: No known problems In the past 12 months,have you had to go without utilities?: No Transportation Issues: No Has anyone in your support network made you feel unsafe?: No Have you or anyone in your house had to go without enough: No - Nursing Vital Signs Nursing Vital Signs: Initial Vital Signs Temperature 96.5 F 12/06/24 11:35 Pulse Rate 75 12/06/24 11:35 Respiratory Rate 19 12/06/24 11:35 Blood Pressure 162/96 12/06/24 11:35 O2 Sat by Pulse Oximetry 99 12/06/24 11:35 Pain Scale Pain Intensity 0 - Physical Exam General Appearance: no apparent distress Eye Exam: PERRL/EOMI Ears, Nose, Throat Exam: normal ENT inspection Neck Exam: normal inspection Respiratory Exam: normal breath sounds Cardiovascular Exam: regular rate/rhythm Gastrointestinal/Abdomen Exam: soft, normal bowel sounds Pelvic Exam: not done SpO2: 100 Ordered Tests: Active Orders 24 hr Category Date Time Status CHEST WITH CONTRAST [CT] Stat Exams 12/06/24 12:36 Completed HEAD WITHOUT CONTRAST [CT] Stat Exams 12/06/24 12:35 Completed CBC W DIFF Stat Lab 12/06/24 12:00 Completed CMP Stat Lab 12/06/24 12:00 Completed MAGNESIUM Stat Lab 12/06/24 12:00 Completed TROPONIN Q4H Lab 12/06/24 12:00 Completed TROPONIN Q4H Lab 12/06/24 15:38 Completed TROPONIN Q4H Lab 12/06/24 20:45 Ordered UA W/RFX UR CULTURE Stat Lab 12/06/24 15:33 Completed Medication Summary Discontinued Medications Generic Name Dose Route Start Last Admin Trade Name Reva PRN Reason Stop Dose Admin Ondansetron HCl 4 mg 12/06/24 12:45 12/06/24 12:59 Ondansetron Hcl 4 Mg/2 Ml Vial IV 12/06/24 12:46 Not Given STAT ONE Ondansetron HCl Confirm 12/06/24 12:53 Ondansetron Hcl 4 Mg/2 Ml Vial Administered 12/06/24 12:54 Dose 4 mg .ROUTE .STK-MED ONE Lab/Rad Data: Laboratory Result Diagrams 12/06/24 12:00 12/06/24 12:00 Laboratory Results 12/06/24 12/06/24 12/06/24 Range/Units 15:38 15:33 12:00 WBC (3.98-10.04) x10^3/uL RBC (3.93-5.22) x10^6/uL Hgb (11.2-15.7) g/dL Hct (34.1-44.9) % MCV (79.4-94.8) fL MCH (25.6-32.2) pg MCHC (32.2-35.5) g/dL RDW (11.7-14.4) % Plt Count (182-369) x10^3/uL MPV (9.4-12.3) fL Gran % (34.0-71.1) % Immature Gran % (Auto) (0.001-0.429) % Nucleat RBC Rel Count (0.00-0.2) % Eos # (Auto) (0.04-0.36) x10^3/uL Immature Gran # (Auto) (0.001-0.031) x10^3u/L Absolute Lymphs (auto) (1.18-3.74) x10^3/uL Absolute Monos (auto) (0.24-0.86) x10^3/uL Absolute Nucleated RBC (0.00-0.012) x10^3u/L Lymphocytes % (19.3-51.7) % Monocytes % (4.7-12.5) % Eosinophils % (0.7-5.8) % Basophils % (0.1-1.2) % Absolute Granulocytes (1.56-6.13) x10^3/uL Basophils # (0.01-0.08) x10^3/uL Sodium 138 (135-145) mmol/L Potassium 4.1 (3.5-5.1) mmol/L Chloride 105 (98-107) mmol/L Carbon Dioxide 26 (22-30) mmol/L Anion Gap 11.4 (5-15) MEQ/L BUN 18 H (7-17) mg/dL Creatinine 0.88 (0.52-1.04) mg/dL Estimated GFR 73.8 ML/MIN Glucose 82 (74-106) mg/dL Calcium 9.6 (8.4-10.2) mg/dL Magnesium 2.0 (1.6-2.3) mg/dL Total Bilirubin 0.60 (0.2-1.3) mg/dL AST 32 (14-36) U/L ALT 27 (0-35) U/L Alkaline Phosphatase 78 (38-126) U/L Troponin I < 0.012 < 0.012 (0.000-0.033) ng/mL Serum Total Protein 7.8 (6.3-8.2) g/dL Albumin 4.6 (3.5-5.0) g/dL Urine Color Yellow (Yellow) Urine Appearance Clear (Clear) Urine pH 7.0 (4.6-8.0) Ur Specific [place] 1.025 (1.005-1.030) Urine Protein Negative (Negative) Urine Glucose (UA) Negative (Negative) mg/dL Urine Ketones Negative (Negative) Urine Blood Negative (Negative) Urine Nitrite Negative (Negative) Urine Bilirubin Negative (Negative) Urine Urobilinogen 0.2 (0.2) mg/dL Ur Leukocyte Esterase Small A (Negative) U Hyaline Cast (Auto) NONE SEEN (0-2) /LPF Urine Microscopic RBC 0-2 (0-5) /HPF Urine Microscopic WBC 0-2 (0-5) /HPF Ur Epithelial Cells None Seen (None Seen) /HPF Urine Bacteria None Seen (None Seen) /HPF Urine Culture Reflexed NO (NO) 12/06/24 Range/Units 12:00 WBC 6.6 (3.98-10.04) x10^3/uL RBC 4.48 (3.93-5.22) x10^6/uL Hgb 12.6 (11.2-15.7) g/dL Hct 38.6 (34.1-44.9) % MCV 86.2 (79.4-94.8) fL MCH 28.1 (25.6-32.2) pg MCHC 32.6 (32.2-35.5) g/dL RDW 13.4 (11.7-14.4) % Plt Count 336 (182-369) x10^3/uL MPV 9.9 (9.4-12.3) fL Gran % 60.6 (34.0-71.1) % Immature Gran % (Auto) 0.3 (0.001-0.429) % Nucleat RBC Rel Count 0.0 (0.00-0.2) % Eos # (Auto) 0.14 (0.04-0.36) x10^3/uL Immature Gran # (Auto) 0.02 (0.001-0.031) x10^3u/L Absolute Lymphs (auto) 1.86 (1.18-3.74) x10^3/uL Absolute Monos (auto) 0.53 (0.24-0.86) x10^3/uL Absolute Nucleated RBC 0.00 (0.00-0.012) x10^3u/L Lymphocytes % 28.3 (19.3-51.7) % Monocytes % 8.1 (4.7-12.5) % Eosinophils % 2.1 (0.7-5.8) % Basophils % 0.6 (0.1-1.2) % Absolute Granulocytes 3.98 (1.56-6.13) x10^3/uL Basophils # 0.04 (0.01-0.08) x10^3/uL Sodium (135-145) mmol/L Potassium (3.5-5.1) mmol/L Chloride (98-107) mmol/L Carbon Dioxide (22-30) mmol/L Anion Gap (5-15) MEQ/L BUN (7-17) mg/dL Creatinine (0.52-1.04) mg/dL Estimated GFR ML/MIN Glucose (74-106) mg/dL Calcium (8.4-10.2) mg/dL Magnesium (1.6-2.3) mg/dL Total Bilirubin (0.2-1.3) mg/dL AST (14-36) U/L ALT (0-35) U/L Alkaline Phosphatase (38-126) U/L Troponin I (0.000-0.033) ng/mL Serum Total Protein (6.3-8.2) g/dL Albumin (3.5-5.0) g/dL Urine Color (Yellow) Urine Appearance (Clear) Urine pH (4.6-8.0) Ur Specific [place] (1.005-1.030) Urine Protein (Negative) Urine Glucose (UA) (Negative) mg/dL Urine Ketones (Negative) Urine Blood (Negative) Urine Nitrite (Negative) Urine Bilirubin (Negative) Urine Urobilinogen (0.2) mg/dL Ur Leukocyte Esterase (Negative) U Hyaline Cast (Auto) (0-2) /LPF Urine Microscopic RBC (0-5) /HPF Urine Microscopic WBC (0-5) /HPF Ur Epithelial Cells (None Seen) /HPF Urine Bacteria (None Seen) /HPF Urine Culture Reflexed (NO) - Progress Progress Note: Impression: Hepatic cyst and multilevel degenerative spondylosis. Remaining CT chest pulmonary embolus exam is normal. patient was updated with the results and informed of the need for repeat troponin she is agreeable 12/06/24 15:29 I updated the patient with the results of the repeat troponin she has no chest pain or dizziness at this time she was informed of the need to follow-up with her primary care provider and living coach 12/06/24 16:33 Medical Desision Making - Discussion of managment Agreed on:: need for follow-up Will see patient: In office - Departure Departure Disposition: Home Clinical Impression: Chest pain, Dizziness Condition: Stable Critical Care Time: No Referrals: YESENIA MORALES NP [Primary Care Provider] - Follow up/PCP as directed
[2024-12-06 16:01] LABS: Appearance Clear (Clear); Bacteria None Seen /HPF (None Seen); Bilirubin Negative (Negative); Blood Negative (Negative); Epithelial Cells None Seen /HPF (None Seen); Glucose, Urine Negative (Negative); Hyaline Casts NONE SEEN /LPF (0-2); Ketones Negative (Negative); Leukocyte Esterase Small (Negative); Nitrite Negative (Negative); Protein,Urine Dip Negative (Negative); RBC 0-2 /HPF (0-5); Specific Gravity 1.025 (1.005-1.030); Urobilinogen 0.2 mg/dL (0.2); WBC 0-2 /HPF (0-5)
== END 2024-12-06 17:15 | disposition home or self-care (01) ==
LOC: ED 11:32
DX: R07.9 Chest pain, unspecified (principal); R42 Dizziness and giddiness; E78.5 Hyperlipidemia, unspecified; I10 Essential (primary) hypertension; Z79.899 Other long term (current) drug therapy
CPT/HCPCS: 36415; 70450; 71260; 80053; 81001; 83735; 84484; 85025; 99283; 99285; J2405

== ENCOUNTER 2025-02-10 07:52 | Emergency (ER) | payer BC ==
[2025-02-10 08:07] VITALS: TEMP 98.5
[2025-02-10] MEDS ORDERED: BABY ASPIRIN 81 MG CHEW ONE (08:20)
--- NOTE | 2025-02-10 08:20 | ERPHSYRPT ---
- History of Present Illness Time Seen by Provider: 02/10/25 08:15 Historian: patient Exam Limitations: no limitations Patient Subjective Stated Complaint: C/O Chest pain around 0630 today. No current pain. Indicates the pain was brief. Triage Nursing Assessment: Patient arrived by ambulance. She is alert and oriented. No SOB. CORRALES WNL. Slight, non-pitting edema to BLE; right worse than left. Physician History: 64 years old female with history of hypertension, hyperlipidemia, coronary artery disease presented in the ER with complaints of sudden onset chest pain substernal with no radiation, moderate intensity sharp nature with no significant aggravating or relieving factors around 6:30 AM today. Afterwards patient started to feel dizzy lightheaded and tingly sensation in the left hand. Denies any difficulty breathing or palpitations. Patient does report having history of intermittent chest pains and follows up with cardiology, has cardiac cath done in 2009 with some partial occlusion. Aspirin Treatment Today: 81 mg x 3 Allergies/Adverse Reactions: Penicillins Allergy (Verified 02/10/25 07:54) breathing states "severe mold allergy" Home Medications: Carvedilol 12.5 mg [Coreg 12.5 mg] 6.25 mg PO BID 09/23/18 [History] Lisinopril 10 mg [Zestril 10 MG] 20 mg PO BID 09/23/18 [History] Meloxicam 7.5 mg [Mobic 7.5 MG] 7.5 mg PO QHS 03/01/20 [History] Aspirin EC 81 mg [Ecotrin 81 mg] 81 mg PO DAILY 05/22/21 [History] Ezetimibe 10 mg [Zetia 10 MG] 10 mg PO HS 05/22/21 [History] Hx Tetanus, Diphtheria Vaccination/Date Given: No Hx Influenza Vaccination/Date Given: No Hx Pneumococcal Vaccination/Date Given: No Travel Risk - International Travel Have you traveled outside of the country in past 3 weeks: No - Emerging Infectious Disease Are you exhibiting symptoms associated with any current EIDs: No - Review of Systems Constitutional: No Symptoms Ears, Nose, & Throat: No Symptoms Respiratory: No Symptoms Cardiac: Chest Pain Abdominal/Gastrointestinal: No Symptoms Genitourinary Symptoms: No Symptoms Musculoskeletal: No Symptoms Neurological: No Symptoms Psychological: No Symptoms Endocrine: No Symptoms Hematologic/Lymphatic: No Symptoms - Past Medical History Pertinent Past Medical History: Yes Neurological History: No Pertinent History ENT History: No Pertinent History Cardiac History: Angina, Arrhythmia, Coronary Artery Disease, High Cholesterol, Hypertension, Other Respiratory History: No Pertinent History Endocrine Medical History: No Pertinent History Musculoskeletal History: Arthritis GI Medical History: GERD, Hernia History: No Pertinent History Psycho-Social History: No Pertinent History Female Reproductive Disorders: No Pertinent History Other Medical History: 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 hx of fx 3 vertebrae in the neck, fx lt side of jaw, and skull fx from [facility] 1981 - Past Surgical History Past Surgical History: Yes Neuro Surgical History: No Pertinent History Cardiac: Cardiac Catheterization Respiratory: No Pertinent History Gastrointestinal: Hernia Repair Genitourinary: No Pertinent History Musculoskeletal: No Pertinent History Female Surgical History: No Pertinent History - Social History Smoking Status: Never smoker Exposure to second hand smoke: No Drug Use: none - Social Determinants of Health Will the patient participate in the screening: Yes Do you worry about a steady place to live?: No Do you have any problems with any of the following?: No known problems In the past 12 months,have you had to go without utilities?: No Transportation Issues: No Has anyone in your support network made you feel unsafe?: No Have you or anyone in your house had to go w/o enough food: No - Nursing Vital Signs Nursing Vital Signs: Initial Vital Signs Temperature 98.5 F 02/10/25 07:56 Pain Scale Pain Intensity 0 - Physical Exam General Appearance: no apparent distress Eye Exam: PERRL/EOMI Ears, Nose, Throat Exam: normal ENT inspection Neck Exam: normal inspection, non-tender, supple, full range of motion Respiratory Exam: normal breath sounds, lungs clear Cardiovascular Exam: regular rate/rhythm, normal heart sounds Gastrointestinal/Abdomen Exam: soft, No tenderness Back Exam: normal inspection Extremity Exam: normal inspection, normal range of motion Neurologic Exam: alert, oriented x 3, cooperative, payable manager II-XII nml as tested, normal mood/affect, nml station & gait, sensation nml, No nml cerebellar function, No motor deficits Skin Exam: normal color SpO2 Interpretation: normal SpO2: 97 O2 Delivery: Room Air - Course EKG Interpreted by Me: RATE (62), Sinus Rhythm, NORMAL AXIS, NORMAL INTERVALS, Q-wave, Non-specific ST Changes Ordered Tests: Active Orders 24 hr Category Date Time Status Lithograph Press Feeder STAT Care 02/10/25 08:08 Completed EKG-ER Only STAT Care 02/10/25 08:07 Completed IV Insertion STAT Care 02/10/25 08:07 Completed CHEST 1 VIEW (PORTABLE) Stat Exams 02/10/25 08:08 Completed CBC W DIFF Stat Lab 02/10/25 08:27 Completed CMP Stat Lab 02/10/25 08:27 Completed NT PRO BNPII Stat Lab 02/10/25 08:27 Completed TROPONIN Q4H Lab 02/10/25 08:27 Completed TROPONIN Q4H Lab 02/10/25 11:55 Completed UA W/RFX UR CULTURE Stat Lab 02/10/25 08:09 Completed Medication Summary Discontinued Medications Generic Name Dose Route Start Last Admin Trade Name Freq PRN Reason Stop Dose Admin Aspirin 243 mg 02/10/25 08:16 02/10/25 08:21 Aspirin 81 Mg Tab.Chew PO 02/10/25 08:17 243 mg STAT ONE Administration Aspirin Confirm 02/10/25 08:20 Aspirin 81 Mg Tab.Chew Administered 02/10/25 08:21 Dose 243 mg .ROUTE [email or web address] ONE Lab/Rad Data: Laboratory Result Diagrams 02/10/25 08:27 02/10/25 08:27 Laboratory Results 02/10/25 02/10/25 02/10/25 Range/Units 11:55 08:27 08:27 WBC (3.98-10.04) x10^3/uL RBC (3.93-5.22) x10^6/uL Hgb (11.2-15.7) g/dL Hct (34.1-44.9) % MCV (79.4-94.8) fL MCH (25.6-32.2) pg MCHC (32.2-35.5) g/dL RDW (11.7-14.4) % Plt Count (182-369) x10^3/uL MPV (9.4-12.3) fL Gran % (34.0-71.1) % Immature Gran % (Auto) (0.001-0.429) % Nucleat RBC Rel Count (0.00-0.2) % Eos # (Auto) (0.04-0.36) x10^3/uL Immature Gran # (Auto) (0.001-0.031) x10^3u/L Absolute Lymphs (auto) (1.18-3.74) x10^3/uL Absolute Monos (auto) (0.24-0.86) x10^3/uL Absolute Nucleated RBC (0.00-0.012) x10^3u/L Lymphocytes % (19.3-51.7) % Monocytes % (4.7-12.5) % Eosinophils % (0.7-5.8) % Basophils % (0.1-1.2) % Absolute Granulocytes (1.56-6.13) x10^3/uL Basophils # (0.01-0.08) x10^3/uL Sodium 141 (135-145) mmol/L Potassium 4.9 (3.5-5.1) mmol/L Chloride 104 (98-107) mmol/L Carbon Dioxide 26 (22-30) mmol/L Anion Gap 15.1 H (5-15) MEQ/L BUN 20 H (7-17) mg/dL Creatinine 0.68 (0.52-1.04) mg/dL Estimated GFR 97.8 ML/MIN Glucose 87 (74-106) mg/dL Calcium 9.7 (8.4-10.2) mg/dL Total Bilirubin 0.60 (0.2-1.3) mg/dL AST 28 (14-36) U/L ALT 22 (0-35) U/L Alkaline Phosphatase 79 (38-126) U/L Troponin I < 0.012 < 0.012 (0.000-0.033) ng/mL NT-Pro-B Natriuret Pep 64.0 (<300) pg/mL Serum Total Protein 7.0 (6.3-8.2) g/dL Albumin 4.5 (3.5-5.0) g/dL Urine Color (Yellow) Urine Appearance (Clear) Urine pH (4.6-8.0) Ur Specific [place] (1.005-1.030) Urine Protein (Negative) Urine Glucose (UA) (Negative) mg/dL Urine Ketones (Negative) Urine Blood (Negative) Urine Nitrite (Negative) Urine Bilirubin (Negative) Urine Urobilinogen (0.2) mg/dL Ur Leukocyte Esterase (Negative) U Hyaline Cast (Auto) (0-2) /LPF Urine Microscopic RBC (0-5) /HPF Urine Microscopic WBC (0-5) /HPF Ur Epithelial Cells (None Seen) /HPF Urine Bacteria (None Seen) /HPF Urine Culture Reflexed (NO) 02/10/25 02/10/25 Range/Units 08:27 08:09 WBC 5.9 (3.98-10.04) x10^3/uL RBC 4.31 (3.93-5.22) x10^6/uL Hgb 12.3 (11.2-15.7) g/dL Hct 37.7 (34.1-44.9) % MCV 87.5 (79.4-94.8) fL MCH 28.5 (25.6-32.2) pg MCHC 32.6 (32.2-35.5) g/dL RDW 13.5 (11.7-14.4) % Plt Count 298 (182-369) x10^3/uL MPV 9.4 (9.4-12.3) fL Gran % 73.1 H (34.0-71.1) % Immature Gran % (Auto) 0.5 H (0.001-0.429) % Nucleat RBC Rel Count 0.0 (0.00-0.2) % Eos # (Auto) 0.16 (0.04-0.36) x10^3/uL Immature Gran # (Auto) 0.03 (0.001-0.031) x10^3u/L Absolute Lymphs (auto) 1.00 L (1.18-3.74) x10^3/uL Absolute Monos (auto) 0.37 (0.24-0.86) x10^3/uL Absolute Nucleated RBC 0.00 (0.00-0.012) x10^3u/L Lymphocytes % 17.1 L (19.3-51.7) % Monocytes % 6.3 (4.7-12.5) % Eosinophils % 2.7 (0.7-5.8) % Basophils % 0.3 (0.1-1.2) % Absolute Granulocytes 4.28 (1.56-6.13) x10^3/uL Basophils # 0.02 (0.01-0.08) x10^3/uL Sodium (135-145) mmol/L Potassium (3.5-5.1) mmol/L Chloride (98-107) mmol/L Carbon Dioxide (22-30) mmol/L Anion Gap (5-15) MEQ/L BUN (7-17) mg/dL Creatinine (0.52-1.04) mg/dL Estimated GFR ML/MIN Glucose (74-106) mg/dL Calcium (8.4-10.2) mg/dL Total Bilirubin (0.2-1.3) mg/dL AST (14-36) U/L ALT (0-35) U/L Alkaline Phosphatase (38-126) U/L Troponin I (0.000-0.033) ng/mL NT-Pro-B Natriuret Pep (<300) pg/mL Serum Total Protein (6.3-8.2) g/dL Albumin (3.5-5.0) g/dL Urine Color Yellow (Yellow) Urine Appearance Clear (Clear) Urine pH 6.0 (4.6-8.0) Ur Specific [place] <=1.005 (1.005-1.030) Urine Protein Negative (Negative) Urine Glucose (UA) Negative (Negative) mg/dL Urine Ketones Negative (Negative) Urine Blood Negative (Negative) Urine Nitrite Negative (Negative) Urine Bilirubin Negative (Negative) Urine Urobilinogen 0.2 (0.2) mg/dL Ur Leukocyte Esterase Trace A (Negative) U Hyaline Cast (Auto) NONE SEEN (0-2) /LPF Urine Microscopic RBC 0-2 (0-5) /HPF Urine Microscopic WBC 0-2 (0-5) /HPF Ur Epithelial Cells None Seen (None Seen) /HPF Urine Bacteria None Seen (None Seen) /HPF Urine Culture Reflexed NO (NO) - Progress Progress: improved, re-examined Air Movement: good Progress Note: 02/10/25 11:00 64 years old is evaluated in the ER for chest pain this morning. She is given aspirin. EKG is sinus rhythm with no obvious ST elevations. She she is offered pain medication which she declined. Chest x-ray showed mild congestion but no pneumonia. Has normal white count, chemistries fairly unremarkable with negative troponins. Patient has a cardiac cath done in 2009 showing some blockages, has stress test done more than 2 years ago, no recent cardiac workup done, patient has a heart score of 4, recommended observation admission with cardiac enzyme trending and further evaluation with possible cardiology consult. Initially patient agreed to stay and I have discussed with :, Reviewed history, workup and he agreed with admission. Later patient decided to leave AGAINST MEDICAL ADVICE, she is not confused or altered and does understand the risk of leaving without full workup which would not only delay the diagnosis but worsening of condition which could be life- threatening which she understands and still wants to leave AMA. Both patient and were involved in decision making. She signed AMA paper and walked out of the ER in a stable condition. Complexity of problem addressed: Moderate to high acuity Complexity of data reviewed/analyzed: Moderate Risk of complication: Moderate to high risk Blood Culture(s) Obtained: No Antibiotics given: No Discussed with : Other (Dr. Grove Hospitalist) Counseled pt/family regarding: lab results, diagnosis, need for follow-up, rad results Medical Desision Making - Independent Historian Additional History obtained from: Spouse - Discussion of managment Care discussed with:: hospitalist Reviewed:: Test results Agreed on:: Treatment plan Will see patient: in hospital - Diagnostic Testing Diagnostic test were ordered, analyzed, and reviewed by me: Yes Radiological Interpretation: Reviewed by me - Risk of complications The pt has a high risk of morbidity or mortality based on: Decision regarding hospitilization or escalation of hosp level of care - Departure Departure Disposition: AMA Clinical Impression: Chest pain Condition: Stable Critical Care Time: No Referrals: YESENIA MORALES NP [Primary Care Provider] - Follow up/PCP as directed
[2025-02-10 08:21] LABS: Appearance Clear (Clear); Bacteria None Seen /HPF (None Seen); Bilirubin Negative (Negative); Blood Negative (Negative); Epithelial Cells None Seen /HPF (None Seen); Glucose, Urine Negative (Negative); Hyaline Casts NONE SEEN /LPF (0-2); Ketones Negative (Negative); Leukocyte Esterase Trace (Negative); Nitrite Negative (Negative); Protein,Urine Dip Negative (Negative); RBC 0-2 /HPF (0-5); Specific Gravity <=1.005 (1.005-1.030); Urobilinogen 0.2 mg/dL (0.2); WBC 0-2 /HPF (0-5)
[2025-02-10] MEDS: BABY ASPIRIN 81 MG CHEW PO ONE (08:21)
[2025-02-10 08:25] LABS: Absolute Neutrophil Ct (ANC) 4.28 x10^3/uL (1.56-6.13); BASOPHIL % 0.3 % (0.1-1.2); Basophil (Absolute #) 0.02 x10^3/uL (0.01-0.08); Eosinophil % 2.7 % (0.7-5.8); Eosinophil (Absolute #) 0.16 x10^3/uL (0.04-0.36); Hematocrit 37.7 % (34.1-44.9); Hemoglobin 12.3 g/dL (11.2-15.7); IMMATURE GRAN # 0.03 x10^3u/L (0.001-0.031); IMMATURE GRAN % 0.5 % (0.001-0.429); Lymphocytes % 17.1 % (19.3-51.7); Mean Cell Volume 87.5 fL (79.4-94.8); Mean Corpuscular Hemoglobin 28.5 pg (25.6-32.2); Mean Corpuscular Hgb Concent. 32.6 g/dL (32.2-35.5); Mean Platelet Volume 9.4 fL (9.4-12.3); Monocyte (Absolute #) 0.37 x10^3/uL (0.24-0.86); Monocytes % 6.3 % (4.7-12.5); Neutrophil % 73.1 % (34.0-71.1); Platelet Count 298 x10^3/uL (182-369); Red Blood Count 4.31 x10^6/uL (3.93-5.22); Red Cell Distribution Width 13.5 % (11.7-14.4); White Blood Count 5.9 x10^3/uL (3.98-10.04)
[2025-02-10 08:47] LABS: ALBUMIN 4.5 g/dL (3.5-5.0); ANION GAP 15.1 MEQ/L (5-15); BILIRUBIN,TOTAL 0.6 mg/dL (0.2-1.3); Calcium 9.7 mg/dL (8.4-10.2); Creatinine 1 0.68 mg/dL (0.52-1.04); EST GLOMERULAR FILTRATION RATE 97.8 ML/MIN; Potassium 4.9 mmol/L (3.5-5.1)
--- NOTE | 2025-02-10 09:00 | XRAY ---
CLINICAL HISTORY: Chest pain COMPARISON: Compared to previous study done at 09/10/2023. TECHNIQUE: X-ray images of the chest were obtained in AP portable projection. FINDINGS: Pulmonary Parenchyma: Lungs are clear bilaterally. No evidence of consolidation, collapse, or focal opacities. No pulmonary nodules identified. No evidence of pleural effusion or pleural thickening. Heart and Mediastinum: Normal cardiac size. Prominent bilateral hilar bronchovascular markings. No mediastinal widening or masses. Bony Thorax: Bony thorax appears intact without fractures or deformities. Soft Tissues: Soft tissues overlying the chest wall are unremarkable. IMPRESSION: Prominent bilateral hilar bronchovascular markings (more prominent compared to the previous study), non-specific could be due to pulmonary congestion. Otherwise, no acute cardiopulmonary abnormality was seen. Electronically Signed by: Rich Baker MD. (02/10/2025 08:56:16 EDT)
[2025-02-10 09:32] VITALS: BP 137/72; PULSE 62; RESP 13
[2025-02-10 12:53] VITALS: O2SAT 97
== END 2025-02-10 12:17 | disposition left against medical advice (07) ==
LOC: ED 07:52
DX: R07.9 Chest pain, unspecified (principal); R42 Dizziness and giddiness; E78.5 Hyperlipidemia, unspecified; I10 Essential (primary) hypertension; Z79.899 Other long term (current) drug therapy
CPT/HCPCS: 36415; 71045; 80053; 81001; 83880; 84484; 85025; 93005; 93041; 99284; 99285; A9270-GY